=== PATIENT | female | born 1995 | race American Indian/Alaskan Native ===

== ENCOUNTER 2018-01-01 20:04 | Emergency (ER) | payer OTHER ==
[2018-01-01 20:45] VITALS: BP 136/82
--- NOTE | 2018-01-01 22:54 | Emergency Department Report ---
- General Chief complaint: Skin/Abscess/Foreign Body Stated complaint: ABSCESS ON VAGINA Time Seen by Provider: 01/01/18 22:49 Source: patient Mode of arrival: Ambulatory Limitations: No Limitations - History of Present Illness Initial comments: 22-year-old -[place] female presents to the ER complaining of boil on her vaginal area. Patient reports it is been there for about a week but has progressively gotten worse. Patient reports that she just put a warm hot cloth on that area today. Patient denies any fever or chills no nausea no vomiting. She does report a past medical history of hypertension. MD complaint: abscess/boil Location: buttocks - Related Data Previous Rx's Medication Instructions Recorded Last Taken Type Cephalexin [Keflex] 500 mg PO Q12HR 10 Days #20 capsule 01/01/18 Unknown Rx Ibuprofen [Motrin 800 MG tab] 800 mg PO Q8HR PRN #15 tablet 01/01/18 Unknown Rx Allergies Allergy/AdvReac Type Severity Reaction Status Date / Time No Known Allergies Allergy Verified 01/01/18 20:[address] [facility] Chief Complaint: Skin/Abscess/Foreign Body Stated Complaint: ABSCESS ON VAGINA Time Seen by Provider: 01/01/18 22:49 Home Medications: Previous Rx's Medication Instructions Recorded Last Taken Type Cephalexin [Keflex] 500 mg PO Q12HR 10 Days #20 capsule 01/01/18 Unknown Rx Ibuprofen [Motrin 800 MG tab] 800 mg PO Q8HR PRN #15 tablet 01/01/18 Unknown Rx Allergies/Adverse Reactions: Allergies Allergy/AdvReac Type Severity Reaction Status Date / Time No Known Allergies Allergy Verified 01/01/18 20:41 ED Review of Systems ROS: Stated complaint: ABSCESS ON VAGINA Other details as noted in HPI ED Past Medical Hx - Past Medical History Previous Medical History?: Yes Hx Hypertension: Yes - Surgical History Past Surgical History?: No - Social History Smoking Status: Current Every Day Smoker Substance Use Type: Alcohol - Medications Home Medications: Home Medications Medication Instructions Recorded Confirmed Last Taken Type Cephalexin [Keflex] 500 mg PO Q12HR 10 Days #20 capsule 01/01/18 Unknown Rx Ibuprofen [Motrin 800 MG tab] 800 mg PO Q8HR PRN #15 tablet 01/01/18 Unknown Rx ED Physical Exam - General Limitations: No Limitations General appearance: alert, in no apparent distress - Head Head exam: Present: atraumatic, normocephalic - Eye Eye exam: Present: EOMI - ENT ENT exam: Present: mucous membranes moist - External exam: Present: erythema (enter labia just below the introitus), swelling (enter labia just below the introitus) - Extremities Exam Extremities exam: Present: full ROM - Neurological Exam Neurological exam: Present: alert, oriented X3 - Psychiatric Psychiatric exam: Present: normal affect, normal mood ED Course Vital Signs 01/01/18 20:41 Temperature 98.6 F Pulse Rate 57 L Respiratory 16 Rate Blood Pressure 136/82 O2 Sat by Pulse 96 Oximetry ED Medical Decision Making - Medical Decision Making Patient has been evaluated by this provider fast track. Patient is being given ibuprofen and Keflex for pain management and the start of antibiotics. Patient prefers not to have a incision and drainage as she would like to take antibiotics and continue with warm compresses to see if that will help before she has an incision and drain. Discussed patient I will discharge her on ibuprofen 800 mg for pain and swelling as well as Keflex 500 mg by mouth twice a day for 10 days dispensed 20. Discussed patient to continue with warm compresses to the area. Return back to the emergency room if the ball gets worse or does not improve in a few days. Patient verbalized understanding Critical care attestation.: If time is entered above; I have spent that time in minutes in the direct care of this critically ill patient, excluding procedure time. ED Disposition Clinical Impression: Boil of vulva Disposition: DC-01 TO HOME OR SELFCARE Is pt being admited?: No Does the pt Need Aspirin: No Condition: Stable Instructions: Furunculosis and Carbunculosis (ED), Abscess (ED) Additional Instructions: Complete antibiotics as prescribed. Continue warm to hot compresses to the boil /abscess. If symptoms persist or gets worse please return back to the emergency room or follow-up with her primary care provider. Prescriptions: Cephalexin [Keflex] 500 mg PO Q12HR 10 Days #20 capsule Ibuprofen [Motrin 800 MG tab] 800 mg PO Q8HR PRN #15 tablet PRN Reason: Pain , Severe (7-10) Referrals: PRIMARY CARE, [Primary Care Provider] - 3-5 Days [facility] [Provider Group] - 3-5 Days Forms: Work/School Release Form(ED)
[2018-01-01] MEDS ORDERED: MOTRIN PO ONE (22:55)
[2018-01-01] MEDS ORDERED: KEFLEX PO ONE (22:59)
== END 2018-01-01 23:40 | disposition home or self-care (01) ==
LOC: ED 20:04
DX: N76.4 Abscess of vulva (principal); I10 Essential (primary) hypertension; F17.200 Nicotine dependence, unspecified, uncomplicated
CPT/HCPCS: 99282

== ENCOUNTER 2018-12-23 11:09 | Emergency (ER) | payer OTHER ==
--- NOTE | 2018-12-23 11:20 | Emergency Department Report ---
Blank Doc - Documentation Documentation: 23 y o female presents with left sided hand tingling sensation to her fingers t hat later led to her having leftt sided non radiating chest pain felt like gas- like PMH: HTN not on medication labs/ cxr ACC
[2018-12-23 11:44] LABS: Basophils # (Auto) 0.1 K/mm3 (0.0-0.1); Basophils % (Auto) 0.7 % (0.0-1.8); Eosinophils # (Auto) 0.1 K/mm3 (0.0-0.4); Eosinophils % (Auto) 1.9 % (0.0-4.3); Hematocrit 38.1 % (30.3-42.9); Hemoglobin 12.6 gm/dl (10.1-14.3); Lymphocytes # (Auto) 2.2 K/mm3 (1.2-5.4); Lymphocytes % (Auto) 28.3 % (13.4-35.0); Mean Corpuscular HGB Conc 33 % (30-34); Mean Corpuscular Volume 87 fl (79-97); Monocytes # (Auto) 0.7 K/mm3 (0.0-0.8); Monocytes % (Auto) 9.3 % (0.0-7.3); Platelet Count 275 K/mm3 (140-440); Red Blood Count 4.35 M/mm3 (3.65-5.03); Red Cell Distribution Width 13.7 % (13.2-15.2)
[2018-12-23 12:05] LABS: BUN/Creatinine Ratio 14; Blood Urea Nitrogen 11 mg/dL (7-17); Calcium 8.8 mg/dL (8.4-10.2); Hemolysis Index 5
--- NOTE | 2018-12-23 12:36 | XRay Report ---
ROUTINE CHEST, TWO VIEWS: HISTORY: chest pain. The trachea, heart, mediastinal contour, lung martin and bony thorax are unremarkable. IMPRESSION: Unremarkable chest x-ray.
--- NOTE | 2018-12-23 13:35 | Emergency Department Report ---
ED Chest Pain HPI - General Chief Complaint: Chest Pain Stated Complaint: CHEST PAIN Time Seen by Provider: 12/23/18 11:17 Source: patient Mode of arrival: Ambulatory Limitations: No Limitations - History of Present Illness Initial Comments: 23 yo F reports left upper chest pain, reports associated left hand tingling. Denies shortness of breath, fever, nausea, vomiting, diaphoresis, leg pain or swelling. MD Complaint: chest pain -: days(s) (1) Onset: during rest Pain Location: left chest Pain Radiation: none Severity: mild Quality: sharp Consistency: intermittent Improves With: nothing Worsens With: palpation, movement re: denies: nausea, vomting, diaphoresis, dyspnea Other Symptoms: denies: cough, leg swelling - Related Data Previous Rx's Medication Instructions Recorded Last Taken Type Ibuprofen [Motrin 800 MG tab] 800 mg PO Q8HR PRN #15 tablet 01/01/18 Unknown Rx cephALEXin [Keflex] 500 mg PO Q12HR 10 Days #20 capsule 01/01/18 Unknown Rx Naproxen [Naprosyn] 500 mg PO BID #20 tablet 12/23/18 Unknown Rx hydroCHLOROthiazide [HCTZ] 25 mg PO QDAY #30 tablet 12/23/18 Unknown Rx Allergies Allergy/AdvReac Type Severity Reaction Status Date / Time No Known Allergies Allergy Verified 01/01/18 20:41 Heart Score - HEART Score History: Slightly suspicious EKG: Normal Age: < 45 Risk factors: No known risk factors Troponin: < normal limit HEART Score: 0 ED Review of Systems ROS: Stated complaint: CHEST PAIN Other details as noted in HPI Comment: All other systems reviewed and negative Constitutional: denies: chills, fever Respiratory: denies: cough, shortness of breath Cardiovascular: chest pain Gastrointestinal: denies: nausea, vomiting Musculoskeletal: other (denies leg pain or swelling) ED Past Medical Hx - Past Medical History Previous Medical History?: Yes Hx Hypertension: Yes Hx Asthma: Yes - Surgical History Past Surgical History?: No - Social History Smoking Status: Current Every Day Smoker Substance Use Type: Alcohol, Marijuana - Medications Home Medications: Home Medications Medication Instructions Recorded Confirmed Last Taken Type Ibuprofen [Motrin 800 MG tab] 800 mg PO Q8HR PRN #15 tablet 01/01/18 Unknown Rx cephALEXin [Keflex] 500 mg PO Q12HR 10 Days #20 capsule 01/01/18 Unknown Rx Naproxen [Naprosyn] 500 mg PO BID #20 tablet 12/23/18 Unknown Rx hydroCHLOROthiazide [HCTZ] 25 mg PO QDAY #30 tablet 12/23/18 Unknown Rx ED Physical Exam - General Limitations: No Limitations General appearance: alert, in no apparent distress - Head Head exam: Present: atraumatic, normocephalic - Eye Eye exam: Present: normal appearance, PERRL, EOMI - ENT ENT exam: Present: mucous membranes moist - Neck Neck exam: Present: normal inspection - Respiratory Respiratory exam: Present: normal lung sounds bilaterally, chest wall tenderness. Absent: respiratory distress - Cardiovascular Cardiovascular Exam: Present: regular rate, normal rhythm - GI/Abdominal GI/Abdominal exam: Present: soft. Absent: distended, tenderness - Extremities Exam Extremities exam: Present: normal inspection. Absent: pedal edema, calf tenderness - Neurological Exam Neurological exam: Present: alert, oriented X3 - Psychiatric Psychiatric exam: Present: normal affect, normal mood - Skin Skin exam: Present: warm, dry, intact, normal color ED Course Vital Signs 12/23/18 12/23/18 11:17 13:44 Temperature 98.2 F Pulse Rate 62 60 Respiratory 20 16 Rate Blood Pressure 158/101 Blood Pressure 150/100 [Left] O2 Sat by Pulse 99 99 Oximetry ED Medical Decision Making - Lab Data Result diagrams: 12/23/18 11:32 12/23/18 11:32 - EKG Data -: EKG Interpreted by Ar EKG shows normal: sinus rhythm, axis, intervals, QRS complexes, ST-T waves Rate: normal - EKG Data Interpretation: no acute changes - Radiology Data Radiology results: report reviewed, image reviewed - Differential Diagnosis chest wall pain, ACS, pneumonia Critical care attestation.: If time is entered above; I have spent that time in minutes in the direct care of this critically ill patient, excluding procedure time. ED Disposition Clinical Impression: Hypertension, Acute chest wall pain Disposition: - TO HOME OR SELFCARE Is pt being admited?: No Condition: Stable Instructions: Costochondritis (ED), Hypertension (ED) Prescriptions: hydroCHLOROthiazide [HCTZ] 25 mg PO QDAY #30 tablet Naproxen [Naprosyn] 500 mg PO BID #20 tablet Referrals: BEN RAMOS MD [Primary Care Provider] - 3-5 Days Time of Disposition: 13:32
[2018-12-23 13:47] VITALS: BP 150/100
== END 2018-12-23 13:44 | disposition home or self-care (01) ==
LOC: ED 11:09
DX: R07.89 Other chest pain (principal); I10 Essential (primary) hypertension; J45.909 Unspecified asthma, uncomplicated; F17.200 Nicotine dependence, unspecified, uncomplicated; F12.10 Cannabis abuse, uncomplicated
CPT/HCPCS: 36415; 71046; 80048; 84484; 84703; 85025; 93005; 93010

== ENCOUNTER 2021-03-13 09:54 | Inpatient (IN) | payer MEDICAID, OTHER ==
[2021-03-13 11:12] LABS: Hemoglobin 11.2 gm/dl (10.1-14.3); Mean Corpuscular HGB Conc 33 % (30-34); Mean Corpuscular Volume 88 fl (79-97); Platelet Count 173 K/mm3 (140-440); Red Blood Count 3.88 M/mm3 (3.65-5.03); Red Cell Distribution Width 13.8 % (13.2-15.2)
[2021-03-13 11:39] LABS: Alanine Aminotransferase 19 units/L (7-56); Uric Acid 5.1 mg/dL (3.5-7.6)
[2021-03-13] MEDS ORDERED: ACETAMINOPHEN 325 MG TAB PO PRN (12:42)
[2021-03-13] MEDS ORDERED: DOCUSATE SODIUM 100 MG CAP PO PRN (12:42)
--- NOTE | 2021-03-13 12:51 | History and Physical Report ---
History of Present Illness Date of examination: 03/13/21 Date of admission: 03/13/2021 Chief complaint: Elevated blood pressures in office and triage, pt c/o mild BURT starting AM 03/13, no tylenol, admission for 24 hr urine History of present illness: EDC Confirmation: 04/09/2021 Past History : 1 Past Medical History: Denies (02/19/2021) (HTN - discovered in records from 2019) Past Surgical History: Reviewed and updated today: negative Risk Factors: Smoked Tobacco Use: Never smoker Smokeless Tobacco Use: Never Passive Smoke Exposure: no Caffeine Use: <1 drinks per day Exercise: yes Times/wk: 4 Type of Exercise: walk Seatbelt Use: 100 % No Dietary Counseling Reason: pn yes PAP Smear History: Date of Last PAP Smear: 08/22/2020 Results: normal Alcohol Use: no Drug Use: no Past Medical History Anesthesia Complications: negative Anemia: negative Autoimmune Disorder: negative Bleeding Disorder: negative Blood Transfusions: negative Breast Disease: negative Diabetes: negative Heart Disease: negative Hypertension: negative Hepatitis/Liver Disease: negative Kidney Disease/UTI: negative Neurologic/Epilepsy/Migraines: negative Phlebitis/Varicosities: negative Psychiatric: negative Pulmonary Disease/Asthma: negative Thyroid Disease: negative Hospitalizations: negative 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 of genital herpes: yes Infection History Comments: HSV per chart review Genetic History Congenital Heart Defect: Mom: no Shea Disease: Mom: no Thalassemia Mom: no Neural Tube Defect Mom: no Down's Syndrome Mom: no Gallo-Sachs Mom: no Sickle Cell Disease/Trait Mom: no Hemophilia Mom: no Muscular Dystrophy Mom: no Cystic Fibrosis Mom: no [place] Chorea Mom: no Mental Retardation Mom: no Fragile X Mom: no Other Genetic/Chromosomal Disorder Mom: no Child w/other defect Mom: no Enviromental Exposures Xray Exposure: no Medication, drug, or alcohol use since LMP: no Chemical/Other Exposure: no Exposure to Cat Liter: no Hx of Parvovirus (Fifth Disease): no Active Medications (reviewed today): None Current Allergies (reviewed today): No known allergies Past History Past Medical History: other (See HPI) Past Surgical History: other (See HPI) TITLE I ASSISTANT History: other (See HPI) Family/Genetic History: other (See HPI) Social history: other (See HPI) - Obstetrical History Expected Date of Delivery: 04/09/21 Actual Gestation: 36 Week(s) 1 Day(s) : 1 Para: 0 Hx # Term Pregnancies: 0 Number of Pregnancies: 0 Spontaneous Abortions: 0 Induced : 0 Number of Living Children: 0 Medications and Allergies Allergies Allergy/AdvReac Type Severity Reaction Status Date / Time No Known Allergies Allergy Verified 01/01/18 20:41 Home Medications Medication Instructions Recorded Confirmed Last Taken Type Ibuprofen [Motrin 800 MG tab] 800 mg PO Q8HR PRN #15 tablet 01/01/18 Unknown Rx cephALEXin [Keflex] 500 mg PO Q12HR 10 Days #20 capsule 01/01/18 Unknown Rx Naproxen [Naprosyn] 500 mg PO BID #20 tablet 12/23/18 Unknown Rx hydroCHLOROthiazide [HCTZ] 25 mg PO QDAY #30 tablet 12/23/18 Unknown Rx Active Meds: Active Medications Acetaminophen (Acetaminophen 325 Mg Tab) 650 mg PO Q4H PRN PRN Reason: Pain MILD(1-3)/Fever >100.5/BURT Docusate Sodium (Docusate Sodium 100 Mg Cap) 100 mg PO Q12H PRN PRN Reason: Constipation Multivitamins/Iron/Calcium ( [id number] Fumarate-Folic Acid Vit Tab) 1 each PO QDAY RENAE Ondansetron HCl (Ondansetron 4 Mg/2 Ml Inj) 4 mg IV Q6H PRN PRN Reason: Nausea And Vomiting Review of Systems All systems: negative - Vital Signs Vital signs: Vital Signs Pulse BP 63 132/84 03/13/21 10:44 03/13/21 10:44 Temp Pulse Resp BP Pulse Ox 98.8 F 63 18 128/84 03/13/21 11:00 03/13/21 12:44 03/13/21 11:00 03/13/21 12:44 - Physical Exam Cardiovascular: Regular rate Lungs: Positive: Normal air movement Abdomen: Positive: normal appearance, soft Genitourinary (Female): Positive: normal external genitalia Vulva: both: normal Vagina: Positive: normal moisture - Obstetrical FHR: category 1 Uterine Contraction Monitor Mode: External Uterine Contraction Pattern: Irregular Uterine Tone Measurement Phase: Resting Results Result Diagrams: 03/13/21 11:09 03/13/21 10:07 Abnormal lab results 03/13/21 Range/Units 10:07 Creatinine 0.5 L (0.6-1.2) mg/dL All other labs normal. Assessment and Plan 25 y/o @ 36+1, seen in the office today with b/p 130/90. She c/o BURT since last night but had not felt the need totry tylenol to relieve. Pt sent to triage for monitoring where she continued to have elevated blood pressures. Pre- e labs NL at this time, UA pending. Pt initially denied hx of htn but upon review of records, she previously was dx with htn in 2019 and rx HCTZ. Plan to admit for 24h urine collection and management of htn if necessary. Dr. Singh consulted and aware of patient's status. - Patient Problems (1) HTN (hypertension), benign Current Visit: Yes Status: Acute Plan to address problem: baseline pre-e labs close monitoring b/p's and urine output 24hr urine collection (2) 36 weeks gestation of Current Visit: Yes Status: Acute (3) Headache Current Visit: Yes Status: Acute Qualifiers: Headache type: tension-type Headache chronicity pattern: acute headache Plan to address problem: tylenol PRN monitor for other pre-e s/s
[2021-03-13 13:10] LABS: Bacteria,Urine 1+ /HPF (Negative); Bilirubin,Urine NEG (Negative); Blood,Urine NEG (Negative); Color,Urine Yellow (Yellow); Mucus,Urine 2+ /HPF; Protein,Urine <15 mg/dL mg/dL (Negative); Urobilinogen,Urine < 2.0 mg/dL (<2.0)
[2021-03-13] MEDS: ONDANSETRON 4 MG/2 ML INJ IV PRN (16:36)
--- NOTE | 2021-03-13 17:17 | Event Note ---
Date: 03/13/21 Pt laying in bed, no complaints at this time, states BURT has resolved. Cat 1 strip, VSSAF and labs wnl. Will reassess prn.
--- NOTE | 2021-03-14 07:41 | Progress Note ---
Assessment and Plan Pt laying in bed. Denies BURT, vision changes, and RUQ pain at this time. Pt with c/o contractions since 0500 this am. Pt reports she felt contractions <5mins apart overnight but they spontaneously resolved; Now feeling frequent contractions since 0500. POC with risks and benefits d/w pt. Pt verbalizes understanding and agrees to vaginal exam to r/o PTL. SVE closed/thick/high. Precautions given. RN notified to monitor pt for labor and notify provider with any changes in status. - Patient Problems (1) 36 weeks gestation of Current Visit: Yes Status: Acute Plan to address problem: NST q4h, to be placed on continuous monitoring PRN for signs of labor or nonreassuring FHT's (2) HTN (hypertension), benign Current Visit: Yes Status: Acute Plan to address problem: Continue 24hr urine collection, as ordered Strict I&O VS per protocol Monitor pt closely & Notify provider with any changes in status Subjective - Subjective Date of service: 03/14/21 Principal diagnosis: IUP @ 36.2 weeks gestation, CHTN Patient reports: movement normal, contractions, no loss of fluid, no vaginal bleeding Objective - Vital Signs Vital Signs: Vital Signs - 12hr 03/13/21 03/13/21 03/13/21 19:45 19:50 19:55 Pulse Rate 60 68 74 Blood Pressure O2 Sat by Pulse 100 99 99 Oximetry 03/13/21 03/13/21 03/13/21 20:00 20:02 20:05 Pulse Rate 61 64 57 L Blood Pressure 130/75 O2 Sat by Pulse 100 99 Oximetry 03/13/21 03/13/21 03/13/21 20:10 20:15 20:20 Pulse Rate 61 68 61 Blood Pressure O2 Sat by Pulse 100 100 100 Oximetry 03/13/21 03/13/21 03/13/21 20:25 20:30 20:32 Pulse Rate 66 70 57 L Blood Pressure 137/83 O2 Sat by Pulse 99 99 Oximetry 03/13/21 03/13/21 03/13/21 20:35 20:40 20:45 Pulse Rate 65 70 57 L Blood Pressure O2 Sat by Pulse 99 97 98 Oximetry 03/13/21 03/13/21 03/13/21 20:50 20:55 21:00 Pulse Rate 63 61 56 L Blood Pressure O2 Sat by Pulse 98 99 98 Oximetry 03/13/21 03/13/21 03/13/21 21:02 21:05 21:10 Pulse Rate 59 L 50 L 77 Blood Pressure 136/78 O2 Sat by Pulse 99 100 Oximetry 03/13/21 03/13/21 03/13/21 21:15 21:20 21:25 Pulse Rate 69 65 67 Blood Pressure O2 Sat by Pulse 99 98 98 Oximetry 03/13/21 03/13/21 03/13/21 21:30 21:32 21:35 Pulse Rate 67 64 58 L Blood Pressure 116/55 O2 Sat by Pulse 100 100 Oximetry 03/13/21 03/13/21 03/13/21 21:40 21:45 21:50 Pulse Rate 72 72 66 Blood Pressure O2 Sat by Pulse 100 98 97 Oximetry 03/13/21 03/13/21 03/13/21 21:55 22:00 22:05 Pulse Rate 61 59 L 56 L Blood Pressure O2 Sat by Pulse 98 98 100 Oximetry 03/13/21 03/13/21 03/13/21 22:10 22:15 22:20 Pulse Rate 61 68 65 Blood Pressure O2 Sat by Pulse 97 99 100 Oximetry 03/13/21 03/13/21 03/13/21 22:25 22:30 22:32 Pulse Rate 66 62 57 L Blood Pressure 113/56 O2 Sat by Pulse 100 100 Oximetry 03/13/21 03/13/21 03/13/21 22:35 22:40 22:45 Pulse Rate 66 65 62 Blood Pressure O2 Sat by Pulse 97 98 98 Oximetry 03/13/21 03/13/21 03/13/21 22:50 22:55 23:00 Pulse Rate 75 58 L 57 L Blood Pressure O2 Sat by Pulse 99 100 99 Oximetry 03/13/21 03/13/21 03/13/21 23:02 23:05 23:10 Pulse Rate 47 L 60 60 Blood Pressure 107/66 O2 Sat by Pulse 97 98 Oximetry 03/13/21 03/13/21 03/13/21 23:15 23:20 23:25 Pulse Rate 74 69 62 Blood Pressure O2 Sat by Pulse 100 99 99 Oximetry 03/13/21 03/13/21 03/13/21 23:30 23:31 23:35 Pulse Rate 72 60 62 Blood Pressure 116/69 O2 Sat by Pulse 99 99 Oximetry 03/13/21 03/13/21 03/13/21 23:40 23:45 23:50 Pulse Rate 58 L 65 54 L Blood Pressure O2 Sat by Pulse 100 97 97 Oximetry 03/13/21 03/14/21 03/14/21 23:55 00:00 00:02 Pulse Rate 52 L 54 L 56 L Blood Pressure 113/72 O2 Sat by Pulse 100 100 Oximetry 03/14/21 03/14/21 03/14/21 00:03 00:05 00:10 Pulse Rate 66 55 L 64 Blood Pressure O2 Sat by Pulse 89 98 99 Oximetry 03/14/21 03/14/21 03/14/21 00:15 00:20 00:25 Pulse Rate 64 59 L 66 Blood Pressure O2 Sat by Pulse 98 97 99 Oximetry 03/14/21 03/14/21 03/14/21 00:30 00:32 00:35 Pulse Rate 59 L 60 65 Blood Pressure 141/83 O2 Sat by Pulse 100 100 Oximetry 03/14/21 03/14/21 03/14/21 00:40 00:45 00:50 Pulse Rate 65 65 77 Blood Pressure O2 Sat by Pulse 100 100 100 Oximetry 03/14/21 03/14/21 03/14/21 00:55 01:00 01:01 Pulse Rate 66 59 L 61 Blood Pressure 123/79 O2 Sat by Pulse 98 97 Oximetry 03/14/21 03/14/21 03/14/21 01:05 01:10 01:15 Pulse Rate 60 64 69 Blood Pressure O2 Sat by Pulse 97 98 97 Oximetry 03/14/21 03/14/21 03/14/21 01:20 01:25 01:30 Pulse Rate 56 L 61 68 Blood Pressure O2 Sat by Pulse 99 98 99 Oximetry 03/14/21 03/14/21 03/14/21 01:33 01:35 01:40 Pulse Rate 62 83 63 Blood Pressure 127/79 O2 Sat by Pulse 97 97 Oximetry 03/14/21 03/14/21 03/14/21 01:45 01:50 01:55 Pulse Rate 77 74 78 Blood Pressure O2 Sat by Pulse 97 97 96 Oximetry 03/14/21 03/14/21 03/14/21 02:00 02:01 02:05 Pulse Rate 67 82 75 Blood Pressure 130/62 O2 Sat by Pulse 93 97 Oximetry 03/14/21 03/14/21 03/14/21 02:10 02:15 02:16 Pulse Rate 68 76 72 Blood Pressure O2 Sat by Pulse 97 96 94 Oximetry 03/14/21 03/14/21 03/14/21 02:20 02:25 02:30 Pulse Rate 71 69 62 Blood Pressure O2 Sat by Pulse 96 97 99 Oximetry 03/14/21 03/14/21 03/14/21 02:32 02:35 02:40 Pulse Rate 55 L 65 64 Blood Pressure 116/56 O2 Sat by Pulse 97 97 Oximetry 03/14/21 03/14/21 03/14/21 02:45 02:50 02:55 Pulse Rate 74 60 69 Blood Pressure O2 Sat by Pulse 97 97 98 Oximetry 03/14/21 03/14/21 03/14/21 03:00 03:01 03:05 Pulse Rate 63 71 70 Blood Pressure 129/72 O2 Sat by Pulse 98 95 Oximetry 03/14/21 03/14/21 03/14/21 03:10 03:12 03:15 Pulse Rate 73 73 55 L Blood Pressure O2 Sat by Pulse 96 94 99 Oximetry 03/14/21 03/14/21 03/14/21 03:20 03:25 03:30 Pulse Rate 62 68 69 Blood Pressure O2 Sat by Pulse 97 96 97 Oximetry 03/14/21 03/14/21 03/14/21 03:31 03:35 03:40 Pulse Rate 62 68 65 Blood Pressure 133/75 O2 Sat by Pulse 98 98 Oximetry 03/14/21 03/14/21 03/14/21 03:45 03:50 03:55 Pulse Rate 64 74 57 L Blood Pressure O2 Sat by Pulse 98 100 97 Oximetry 03/14/21 03/14/21 03/14/21 04:00 04:02 04:05 Pulse Rate 59 L 61 58 L Blood Pressure 124/77 O2 Sat by Pulse 97 97 Oximetry 03/14/21 03/14/21 03/14/21 04:10 04:15 04:20 Pulse Rate 59 L 61 61 Blood Pressure O2 Sat by Pulse 97 97 96 Oximetry 03/14/21 03/14/21 03/14/21 04:25 04:30 04:31 Pulse Rate 61 61 63 Blood Pressure 122/67 O2 Sat by Pulse 96 96 Oximetry 03/14/21 03/14/21 03/14/21 04:35 04:40 04:45 Pulse Rate 70 61 55 L Blood Pressure O2 Sat by Pulse 96 97 98 Oximetry 03/14/21 03/14/21 03/14/21 04:50 04:55 05:00 Pulse Rate 59 L 59 L 66 Blood Pressure O2 Sat by Pulse 98 99 97 Oximetry 03/14/21 03/14/21 03/14/21 05:01 05:05 05:10 Pulse Rate 68 63 61 Blood Pressure 123/70 O2 Sat by Pulse 97 97 Oximetry 03/14/21 03/14/21 03/14/21 05:15 05:20 05:25 Pulse Rate 61 64 63 Blood Pressure O2 Sat by Pulse 97 97 97 Oximetry 03/14/21 03/14/21 03/14/21 05:30 05:32 05:35 Pulse Rate 61 57 L 60 Blood Pressure 116/68 O2 Sat by Pulse 98 96 Oximetry 03/14/21 03/14/21 03/14/21 05:40 05:45 05:49 Pulse Rate 63 61 72 Blood Pressure O2 Sat by Pulse 96 97 94 Oximetry 03/14/21 03/14/21 03/14/21 05:50 05:55 06:00 Pulse Rate 54 L 59 L 62 Blood Pressure O2 Sat by Pulse 99 98 100 Oximetry 03/14/21 03/14/21 03/14/21 06:02 06:05 06:10 Pulse Rate 60 55 L 63 Blood Pressure 117/68 O2 Sat by Pulse 100 99 Oximetry 03/14/21 03/14/21 03/14/21 06:15 06:20 06:25 Pulse Rate 69 60 78 Blood Pressure O2 Sat by Pulse 99 99 99 Oximetry 03/14/21 03/14/21 03/14/21 06:30 06:31 06:35 Pulse Rate 76 76 74 Blood Pressure 116/57 O2 Sat by Pulse 98 99 Oximetry 03/14/21 03/14/21 03/14/21 06:40 06:45 06:50 Pulse Rate 81 74 74 Blood Pressure O2 Sat by Pulse 98 95 98 Oximetry 03/14/21 03/14/21 03/14/21 06:55 07:00 07:02 Pulse Rate 80 92 H 79 Blood Pressure 102/55 O2 Sat by Pulse 97 99 Oximetry 03/14/21 03/14/21 03/14/21 07:05 07:10 07:15 Pulse Rate 78 77 82 Blood Pressure O2 Sat by Pulse 99 99 99 Oximetry 03/14/21 03/14/21 03/14/21 07:20 07:25 07:30 Pulse Rate 81 71 80 Blood Pressure O2 Sat by Pulse 99 99 98 Oximetry 03/14/21 03/14/21 07:32 07:35 Pulse Rate 69 63 Blood Pressure 99/50 O2 Sat by Pulse 98 Oximetry - Exam Breasts: deferred Cardiovascular: Regular rate Lungs: Normal air movement Abdomen: Present: normal appearance, soft. Absent: distention, tenderness, guarding Vulva: both: normal Uterus: Present: normal FHR: auscultation normal, category 1 FHR comments: monitors placed for assessment of contractions Uterine Contraction Monitor Mode: Palpation Cervical Dilatation: 0 Cervical Effacement Percentage: 0 station: -5 Uterine Contraction Pattern: Irregular Uterine Tone Measurement Phase: Contraction Uterine Contraction Intensity: Mild Extremities: normal - Labs Labs: Abnormal Labs 03/13/21 10:07 Creatinine 0.5 L Laboratory Results - last 24 hr 03/13/21 03/13/21 03/13/21 10:07 11:09 12:52 WBC 8.0 RBC 3.88 Hgb 11.2 Hct 34.0 MCV 88 MCH 29 MCHC 33 RDW 13.8 Plt Count 173 Creatinine 0.5 L Estimated GFR > 60 Uric Acid 5.1 AST 19 ALT 19 Lactate Dehydrogenase 159 Urine Color Yellow Urine Turbidity Slightly-cloudy Urine pH 7.0 Ur Specific [place] 1.016 Urine Protein <15 mg/dl Urine Glucose (UA) Neg Urine Ketones Neg Urine Blood Neg Urine Nitrite Neg Urine Bilirubin Neg Urine Urobilinogen < 2.0 Ur Leukocyte Esterase Tr Urine WBC (Auto) 4.0 Urine RBC (Auto) 1.0 U Epithel Cells (Auto) 10.0 Urine Bacteria (Auto) 1+ Urine Mucus 2+ Blood Type Antibody Screen 03/13/21 13:15 WBC RBC Hgb Hct MCV MCH MCHC RDW Plt Count Creatinine Estimated GFR Uric Acid AST ALT Lactate Dehydrogenase Urine Color Urine Turbidity Urine pH Ur Specific [place] Urine Protein Urine Glucose (UA) Urine Ketones Urine Blood Urine Nitrite Urine Bilirubin Urine Urobilinogen Ur Leukocyte Esterase Urine WBC (Auto) Urine RBC (Auto) U Epithel Cells (Auto) Urine Bacteria (Auto) Urine Mucus Blood Type O POSITIVE Antibody Screen Negative
[2021-03-14] MEDS ORDERED: PRENATAL VIT27-FE FUMARATE-FOLIC ACID VIT TAB PO SCH (10:00)
--- NOTE | 2021-03-14 19:58 | Event Note ---
Date: 03/14/21 Chart and labs reviewed Nonproteinuric elevated BP's. She has the diagnosis of CHTN in her previous OBGYN's records. She no longer has a BURT and BP's have been stable until tonight, still not severe but in mild range. Will observe overnight. Orders given to RN and placed in EMR.
--- NOTE | 2021-03-15 06:18 | Discharge Summary ---
Providers - Providers Date of Admission: 03/13/21 09:55 Date of discharge: 03/15/21 (pt req d/c home today) Attending physician: HUONG HERRMANN MD Primary care physician: HUONG HERRMANN MD Hospitalization Reason for admission: elevated BP; 24hr urine collection Condition: Good Hospital course: pt's BP stablized; TP 216; Pt w/o BURT, blurred vision, chest pain Disposition: 01 HOME / SELF CARE / HOMELESS Final Discharge Diagnosis (Prints w/discharge instructions): Benign HTN in 3rd trimester Time spent for discharge: 15min - Discharge Diagnoses (1) HTN (hypertension), benign Status: Acute Comment: RTO Friday03-19-21 @ 1030 for OB appt and BP check Core Measure Documentation - Palliative Care Palliative Care/ Comfort Measures: Not Applicable - Core Measures Any of the following diagnoses?: none - VTE Discharge Requirements Deep Vein Thrombosis/Pulmonary Embolism Present on Admission: No Has pt received <5 days of overlap therapy or INR<2.0: No Anticoagulant overlap therapy prescribed at discharge: No Contraindication No Overlap Therapy order at DC: Not Indicated - Acute NH Discharge Requirements Aspirin at discharge: No Reason for no aspirin on DC: Medical contraindication HERBIE/ARB for LVSD if EF <40%: Not Applicable Reason for no HERBIE/ARB: Medical contraindication Beta ady at discharge: No Reason for no beta ady on DC: Medical contraindication Statin for LDL = or >100 mg/dl on DC: Not Applicable Reason for no statin on DC: Medical contraindication - Heart Failure Discharge Requirements HERBIE/ARB for LVSD if EF <40%: Not Applicable Reason for no HERBIE/ARB: Medical contraindication Beta ady at discharge: No Reason for no beta ady on DC: Medical contraindication - Stroke Discharge Requirements Statin for LDL = or >70 mg/dl on DC: Not Applicable Reason for no statin on DC: Not Indicated Anticoag for atrial fib/atrial flutter: Not Applicable Reason for no anticoag for AF/F on DC: Not Indicated Antithrombotic for ischemic stroke: No Reason for no antithrombotic on DC: Not Indicated Exam - Physical Exam Narrative exam: Pt sleeping easily aroused. Desires d/c today Denies BURT, blurred vision, chest pain. NST reactive. BP 130-115/80-60 P: d/c today with instructions RTO Friday03-19-21 @ 1030 for f/u. Stressed to pt to call with any ocncerns and to monitor FM QD All concerns addressed Will consult with Dr Spear - Constitutional Vitals: Temp Pulse Resp BP Pulse Ox 98.7 F 57 L 18 128/62 97 03/14/21 20:11 03/15/21 06:11 03/14/21 16:10 03/15/21 05:47 03/15/21 06:11 General appearance: Present: no acute distress, well-nourished - EENT Eyes: Present: PERRL ENT: hearing intact, clear oral mucosa - Neck Neck: Present: supple, normal ROM - Respiratory Respiratory effort: normal Respiratory: bilateral: CTA - Cardiovascular Heart Sounds: Present: S1 & S2. Absent: rub, click - Extremities Extremities: pulses symmetrical, No edema Peripheral Pulses: within normal limits - Abdominal General gastrointestinal: Present: deferred - Integumentary Integumentary: Present: clear, warm, dry - Musculoskeletal Musculoskeletal: gait normal, strength equal bilaterally - Psychiatric Psychiatric: appropriate mood/affect, intact judgment & insight - Neurologic Neurologic: CNII-XII intact, moves all extremities Plan Activity: advance as tolerated Weight Bearing Status: Full Weight Bearing Diet: low salt Care Plan Goals: no onset of BP's in severe range Follow up with: HUONG HERRMANN MD [Primary Care Provider] - 03/19/21 10:30 am (Please call [phone] with any headache, not relieved with Tylenol, blurred vision, chest pain. Monitor your baby's movement everyday. REST. Limit salt, fried foods, drink a gallon of water a day. Call with any concerns. Keep appontment 03-19-21 at 10:30 in the [place] office)
[2021-03-15] MEDS ORDERED: TERBUTALINE 1 MG/1 ML INJ SUB-Q PRN (12:41)
[2021-03-15] MEDS ORDERED: OXYTOCIN 10 UNIT/1 ML INJ IM PRN (12:41)
[2021-03-15] MEDS ORDERED: CARBOPROST TROMETHAMINE 250 MCG/1 ML INJ IM PRN (12:41)
[2021-03-15] MEDS ORDERED: ePHEDrine SULFATE 50 MG/1 ML INJ IV PRN (12:41)
[2021-03-15] MEDS ORDERED: LIDOCAINE (2%) 20 MG/1 ML VIAL 20 ML MDV INFILTRATI ONE (12:41)
[2021-03-15] MEDS ORDERED: MINERAL OIL 30 ML ORAL LIQD PO PRN (12:41)
[2021-03-15] MEDS ORDERED: NalbUPHINE 10 MG/1 ML INJ IV PRN (12:41)
[2021-03-15] MEDS ORDERED: miSOPROStol 200 MCG TAB PR PRN (12:41)
[2021-03-15] MEDS ORDERED: LOPERAMIDE 2 MG CAP PO PRN (12:41)
[2021-03-15] MEDS ORDERED: METHYLERGONOVINE MALEATE 0.2 MG/ML VIAL IM PRN (12:41)
[2021-03-15] MEDS ORDERED: LACTATED RINGERS 1,000 ML IV SCH (12:45)
--- NOTE | 2021-03-15 12:48 | Progress Note ---
Assessment and Plan - Patient Problems (1) Gestational hypertension without significant proteinuria Onset Date: ~03/15/21 Current Visit: Yes Status: Acute Qualifiers: Trimester: third trimester Qualified Code(s): O13.3 - Gestational [-induced] hypertension without significant proteinuria, third trimester Plan to address problem: Discharge cancelled due to a steady trend upward of blood pressures. Consulted with Dr Spear Decision made to keep pt and induce her. Went over to see pt at lunch. Exp findings and concerns with worsening elevated BP and need to move forward with IOL. Pt voiced understanding and agrees to POC. Will use pitocin protocol for now Will re-eval @ 1800. Pt aware this may take several days. All concerns addressed. Subjective - Subjective Date of service: 03/15/21 (pt agrees to POC; start IOL) Principal diagnosis: IUP @ 36.2 weeks gestation, CHTN GHTN Patient reports: movement normal, contractions, no loss of fluid, no vaginal bleeding Objective - Vital Signs Vital Signs: Vital Signs - 12hr 03/15/21 03/15/21 03/15/21 00:51 00:56 01:01 Temperature Pulse Rate 84 84 77 Blood Pressure O2 Sat by Pulse 97 97 100 Oximetry O2 Sat by Pulse Oximetry [ Bilateral Throughout] 03/15/21 03/15/21 03/15/21 01:06 01:11 01:16 Temperature Pulse Rate 70 67 65 Blood Pressure O2 Sat by Pulse 99 100 100 Oximetry O2 Sat by Pulse Oximetry [ Bilateral Throughout] 03/15/21 03/15/21 03/15/21 01:17 01:21 01:26 Temperature Pulse Rate 63 61 67 Blood Pressure 117/56 O2 Sat by Pulse 99 98 Oximetry O2 Sat by Pulse Oximetry [ Bilateral Throughout] 03/15/21 03/15/21 03/15/21 01:31 01:36 01:41 Temperature Pulse Rate 60 66 53 L Blood Pressure O2 Sat by Pulse 99 98 98 Oximetry O2 Sat by Pulse Oximetry [ Bilateral Throughout] 03/15/21 03/15/21 03/15/21 01:46 01:47 01:51 Temperature Pulse Rate 64 62 61 Blood Pressure 119/81 O2 Sat by Pulse 98 98 Oximetry O2 Sat by Pulse Oximetry [ Bilateral Throughout] 03/15/21 03/15/21 03/15/21 01:56 02:01 02:06 Temperature Pulse Rate 59 L 53 L 55 L Blood Pressure O2 Sat by Pulse 99 99 98 Oximetry O2 Sat by Pulse Oximetry [ Bilateral Throughout] 03/15/21 03/15/21 03/15/21 02:11 02:16 02:18 Temperature Pulse Rate 69 71 80 Blood Pressure 142/87 O2 Sat by Pulse 100 99 Oximetry O2 Sat by Pulse Oximetry [ Bilateral Throughout] 03/15/21 03/15/21 03/15/21 02:21 02:26 02:31 Temperature Pulse Rate 61 59 L 69 Blood Pressure O2 Sat by Pulse 100 99 98 Oximetry O2 Sat by Pulse Oximetry [ Bilateral Throughout] 03/15/21 03/15/21 03/15/21 02:36 02:41 02:46 Temperature Pulse Rate 67 65 62 Blood Pressure O2 Sat by Pulse 99 97 98 Oximetry O2 Sat by Pulse Oximetry [ Bilateral Throughout] 03/15/21 03/15/21 03/15/21 02:47 02:51 02:56 Temperature Pulse Rate 64 67 65 Blood Pressure 123/66 O2 Sat by Pulse 98 97 Oximetry O2 Sat by Pulse Oximetry [ Bilateral Throughout] 03/15/21 03/15/21 03/15/21 03:01 03:06 03:11 Temperature Pulse Rate 62 69 60 Blood Pressure O2 Sat by Pulse 97 96 96 Oximetry O2 Sat by Pulse Oximetry [ Bilateral Throughout] 03/15/21 03/15/21 03/15/21 03:12 03:16 03:17 Temperature Pulse Rate 74 82 76 Blood Pressure 123/66 O2 Sat by Pulse 94 96 Oximetry O2 Sat by Pulse Oximetry [ Bilateral Throughout] 03/15/21 03/15/21 03/15/21 03:21 03:26 03:31 Temperature Pulse Rate 72 73 68 Blood Pressure O2 Sat by Pulse 97 97 96 Oximetry O2 Sat by Pulse Oximetry [ Bilateral Throughout] 03/15/21 03/15/21 03/15/21 03:36 03:41 03:46 Temperature Pulse Rate 60 60 57 L Blood Pressure O2 Sat by Pulse 97 97 100 Oximetry O2 Sat by Pulse Oximetry [ Bilateral Throughout] 03/15/21 03/15/21 03/15/21 03:47 03:51 03:56 Temperature Pulse Rate 60 58 L 59 L Blood Pressure 132/80 O2 Sat by Pulse 100 100 Oximetry O2 Sat by Pulse Oximetry [ Bilateral Throughout] 03/15/21 03/15/21 03/15/21 04:01 04:06 04:11 Temperature Pulse Rate 59 L 64 61 Blood Pressure O2 Sat by Pulse 100 100 100 Oximetry O2 Sat by Pulse Oximetry [ Bilateral Throughout] 03/15/21 03/15/21 03/15/21 04:16 04:17 04:21 Temperature Pulse Rate 73 67 61 Blood Pressure 122/79 O2 Sat by Pulse 96 97 Oximetry O2 Sat by Pulse Oximetry [ Bilateral Throughout] 03/15/21 03/15/21 03/15/21 04:26 04:31 04:36 Temperature Pulse Rate 58 L 67 63 Blood Pressure O2 Sat by Pulse 97 96 97 Oximetry O2 Sat by Pulse Oximetry [ Bilateral Throughout] 03/15/21 03/15/21 03/15/21 04:41 04:42 04:46 Temperature Pulse Rate 65 67 64 Blood Pressure O2 Sat by Pulse 95 94 97 Oximetry O2 Sat by Pulse Oximetry [ Bilateral Throughout] 03/15/21 03/15/21 03/15/21 04:47 04:51 04:56 Temperature Pulse Rate 60 59 L 61 Blood Pressure 132/68 O2 Sat by Pulse 97 97 Oximetry O2 Sat by Pulse Oximetry [ Bilateral Throughout] 03/15/21 03/15/21 03/15/21 05:01 05:06 05:11 Temperature Pulse Rate 57 L 58 L 68 Blood Pressure O2 Sat by Pulse 98 98 98 Oximetry O2 Sat by Pulse Oximetry [ Bilateral Throughout] 03/15/21 03/15/21 03/15/21 05:16 05:17 05:21 Temperature Pulse Rate 78 78 74 Blood Pressure 114/79 O2 Sat by Pulse 98 98 Oximetry O2 Sat by Pulse Oximetry [ Bilateral Throughout] 03/15/21 03/15/21 03/15/21 05:26 05:31 05:36 Temperature Pulse Rate 64 65 63 Blood Pressure O2 Sat by Pulse 98 97 98 Oximetry O2 Sat by Pulse Oximetry [ Bilateral Throughout] 03/15/21 03/15/21 03/15/21 05:41 05:46 05:47 Temperature Pulse Rate 64 69 70 Blood Pressure 128/62 O2 Sat by Pulse 98 97 Oximetry O2 Sat by Pulse Oximetry [ Bilateral Throughout] 03/15/21 03/15/21 03/15/21 05:51 05:56 06:01 Temperature Pulse Rate 64 67 62 Blood Pressure O2 Sat by Pulse 97 100 100 Oximetry O2 Sat by Pulse Oximetry [ Bilateral Throughout] 03/15/21 03/15/21 03/15/21 06:06 06:11 06:16 Temperature Pulse Rate 65 57 L 59 L Blood Pressure O2 Sat by Pulse 100 97 100 Oximetry O2 Sat by Pulse Oximetry [ Bilateral Throughout] 03/15/21 03/15/21 03/15/21 06:17 06:21 06:26 Temperature Pulse Rate 60 59 L 65 Blood Pressure 130/75 O2 Sat by Pulse 99 99 Oximetry O2 Sat by Pulse Oximetry [ Bilateral Throughout] 03/15/21 03/15/21 03/15/21 06:31 06:33 06:36 Temperature Pulse Rate 60 70 58 L Blood Pressure O2 Sat by Pulse 100 92 99 Oximetry O2 Sat by Pulse Oximetry [ Bilateral Throughout] 03/15/21 03/15/21 03/15/21 06:41 06:46 06:47 Temperature Pulse Rate 61 54 L 59 L Blood Pressure 142/91 O2 Sat by Pulse 98 99 Oximetry O2 Sat by Pulse Oximetry [ Bilateral Throughout] 03/15/21 03/15/21 03/15/21 06:51 06:56 07:01 Temperature Pulse Rate 58 L 64 69 Blood Pressure O2 Sat by Pulse 100 97 100 Oximetry O2 Sat by Pulse Oximetry [ Bilateral Throughout] 03/15/21 03/15/21 03/15/21 07:06 07:11 07:16 Temperature Pulse Rate 72 59 L 72 Blood Pressure O2 Sat by Pulse 100 100 100 Oximetry O2 Sat by Pulse Oximetry [ Bilateral Throughout] 03/15/21 03/15/21 03/15/21 07:17 07:21 07:26 Temperature Pulse Rate 76 61 60 Blood Pressure 117/69 O2 Sat by Pulse 100 100 Oximetry O2 Sat by Pulse Oximetry [ Bilateral Throughout] 03/15/21 03/15/21 03/15/21 07:31 07:36 07:41 Temperature Pulse Rate 58 L 65 57 L Blood Pressure O2 Sat by Pulse 100 99 100 Oximetry O2 Sat by Pulse Oximetry [ Bilateral Throughout] 03/15/21 03/15/21 03/15/21 07:45 07:46 07:47 Temperature Pulse Rate 80 58 L 54 L Blood Pressure 147/97 O2 Sat by Pulse 92 99 Oximetry O2 Sat by Pulse Oximetry [ Bilateral Throughout] 03/15/21 03/15/21 03/15/21 07:51 07:56 08:01 Temperature Pulse Rate 79 63 66 Blood Pressure O2 Sat by Pulse 97 100 100 Oximetry O2 Sat by Pulse Oximetry [ Bilateral Throughout] 03/15/21 03/15/21 03/15/21 08:06 08:11 08:16 Temperature Pulse Rate 59 L 53 L 64 Blood Pressure O2 Sat by Pulse 99 100 99 Oximetry O2 Sat by Pulse Oximetry [ Bilateral Throughout] 03/15/21 03/15/21 03/15/21 08:17 08:21 08:23 Temperature Pulse Rate 62 68 Blood Pressure 135/95 O2 Sat by Pulse 100 Oximetry O2 Sat by Pulse 98 Oximetry [ Bilateral Throughout] 03/15/21 03/15/21 03/15/21 08:26 08:30 08:31 Temperature 98.7 F Pulse Rate 76 65 Blood Pressure O2 Sat by Pulse 99 100 Oximetry O2 Sat by Pulse Oximetry [ Bilateral Throughout] 03/15/21 03/15/21 03/15/21 08:36 08:41 08:46 Temperature Pulse Rate 67 63 66 Blood Pressure O2 Sat by Pulse 99 98 99 Oximetry O2 Sat by Pulse Oximetry [ Bilateral Throughout] 03/15/21 03/15/21 03/15/21 08:47 08:51 08:56 Temperature Pulse Rate 67 63 62 Blood Pressure 144/95 O2 Sat by Pulse 100 99 Oximetry O2 Sat by Pulse Oximetry [ Bilateral Throughout] 03/15/21 03/15/21 03/15/21 09:01 09:06 09:11 Temperature Pulse Rate 75 69 76 Blood Pressure O2 Sat by Pulse 100 100 99 Oximetry O2 Sat by Pulse Oximetry [ Bilateral Throughout] 03/15/21 03/15/21 03/15/21 09:16 09:17 09:21 Temperature Pulse Rate 62 71 80 Blood Pressure 151/98 O2 Sat by Pulse 100 100 Oximetry O2 Sat by Pulse Oximetry [ Bilateral Throughout] 03/15/21 03/15/21 03/15/21 09:26 09:31 09:36 Temperature Pulse Rate 69 71 65 Blood Pressure O2 Sat by Pulse 100 100 99 Oximetry O2 Sat by Pulse Oximetry [ Bilateral Throughout] 03/15/21 03/15/21 03/15/21 09:41 09:46 09:47 Temperature Pulse Rate 64 67 71 Blood Pressure 126/79 O2 Sat by Pulse 100 100 Oximetry O2 Sat by Pulse Oximetry [ Bilateral Throughout] 03/15/21 03/15/21 03/15/21 09:51 09:56 10:28 Temperature Pulse Rate 66 72 64 Blood Pressure 146/91 O2 Sat by Pulse 99 99 Oximetry O2 Sat by Pulse Oximetry [ Bilateral Throughout] 03/15/21 03/15/21 11:39 12:32 Temperature Pulse Rate 70 77 Blood Pressure 143/94 127/77 O2 Sat by Pulse Oximetry O2 Sat by Pulse Oximetry [ Bilateral Throughout] - Exam Breasts: deferred Cardiovascular: Regular rate Abdomen: Present: normal appearance, soft. Absent: distention, tenderness Uterus: Present: normal FHR: auscultation normal, category 1 Uterine Contraction Monitor Mode: External Cervical Dilatation: 0 Cervical Effacement Percentage: 40 station: -2 Uterine Tone Measurement Phase: Resting Extremities: edema (feet ankles bilateral) Deep Tendon Reflex Grade: Normal +2 - Labs Labs: Abnormal Labs 03/13/21 03/13/21 10:07 13:56 Creatinine 0.5 L Ur Total Protein 24 Hr 216.00 H Urine Total Protein 18 H Laboratory Results - last 24 hr 03/13/21 03/14/21 13:56 Unknown Urine Total Volume 1200 Ur Total Protein 24 Hr 216.00 H Urine Total Protein 18 H Coronavirus (PCR) Negative
[2021-03-15] MEDS ORDERED: OXYTOCIN DRIP 30 UNITS/500 ML BAG IV SCH (13:00)
[2021-03-15] MEDS: LACTATED RINGERS 1,000 ML IV SCH (14:54)
[2021-03-15] MEDS: OXYTOCIN DRIP 30 UNITS/500 ML BAG IV SCH (14:59)
[2021-03-15 19:17] LABS: Hematocrit 35.2 % (30.3-42.9); Hemoglobin 11.6 gm/dl (10.1-14.3); Mean Corpuscular HGB Conc 33 % (30-34); Mean Corpuscular Volume 90 fl (79-97); Platelet Count 174 K/mm3 (140-440); Red Blood Count 3.93 M/mm3 (3.65-5.03); Red Cell Distribution Width 13.8 % (13.2-15.2)
--- NOTE | 2021-03-15 19:43 | Progress Note ---
Assessment and Plan Pt sitting in bed without complaints this evening; VSS. Denies BURT, RUQ pain, and vision changes. POC d/w pt with risks and benefits. Discussed IOL may take several days. Pt verbalizes understanding and agrees to continue IOL as ordered. Plan to place cervidil @2000 and monitor closely. Notify provider with any changes in status; anticipate . Dr. Spear aware. 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 Current Visit: Yes Status: Acute Plan to address problem: Valtrex as ordered for outbreak prevention Subjective - Subjective Date of service: 03/15/21 Principal diagnosis: IUP @ 36.3 weeks gestation, IOL for worsening CHTN in Patient reports: movement normal, no new complaints, no loss of fluid, no vaginal bleeding, no contractions Objective - Vital Signs Vital Signs: Vital Signs - 12hr 03/15/21 03/15/21 03/15/21 07:45 07:46 07:47 Temperature Pulse Rate 80 58 L 54 L Respiratory Rate Blood Pressure 147/97 O2 Sat by Pulse 92 99 Oximetry O2 Sat by Pulse Oximetry [ Bilateral Throughout] 03/15/21 03/15/21 03/15/21 07:51 07:56 08:01 Temperature Pulse Rate 79 63 66 Respiratory Rate Blood Pressure O2 Sat by Pulse 97 100 100 Oximetry O2 Sat by Pulse Oximetry [ Bilateral Throughout] 03/15/21 03/15/21 03/15/21 08:06 08:11 08:16 Temperature Pulse Rate 59 L 53 L 64 Respiratory Rate Blood Pressure O2 Sat by Pulse 99 100 99 Oximetry O2 Sat by Pulse Oximetry [ Bilateral Throughout] 03/15/21 03/15/21 03/15/21 08:17 08:21 08:23 Temperature Pulse Rate 62 68 Respiratory Rate Blood Pressure 135/95 O2 Sat by Pulse 100 Oximetry O2 Sat by Pulse 98 Oximetry [ Bilateral Throughout] 03/15/21 03/15/21 03/15/21 08:26 08:30 08:31 Temperature 98.7 F Pulse Rate 76 65 Respiratory Rate Blood Pressure O2 Sat by Pulse 99 100 Oximetry O2 Sat by Pulse Oximetry [ Bilateral Throughout] 03/15/21 03/15/21 03/15/21 08:36 08:41 08:46 Temperature Pulse Rate 67 63 66 Respiratory Rate Blood Pressure O2 Sat by Pulse 99 98 99 Oximetry O2 Sat by Pulse Oximetry [ Bilateral Throughout] 03/15/21 03/15/21 03/15/21 08:47 08:51 08:56 Temperature Pulse Rate 67 63 62 Respiratory Rate Blood Pressure 144/95 O2 Sat by Pulse 100 99 Oximetry O2 Sat by Pulse Oximetry [ Bilateral Throughout] 03/15/21 03/15/21 03/15/21 09:01 09:06 09:11 Temperature Pulse Rate 75 69 76 Respiratory Rate Blood Pressure O2 Sat by Pulse 100 100 99 Oximetry O2 Sat by Pulse Oximetry [ Bilateral Throughout] 03/15/21 03/15/21 03/15/21 09:16 09:17 09:21 Temperature Pulse Rate 62 71 80 Respiratory Rate Blood Pressure 151/98 O2 Sat by Pulse 100 100 Oximetry O2 Sat by Pulse Oximetry [ Bilateral Throughout] 03/15/21 03/15/21 03/15/21 09:26 09:31 09:36 Temperature Pulse Rate 69 71 65 Respiratory Rate Blood Pressure O2 Sat by Pulse 100 100 99 Oximetry O2 Sat by Pulse Oximetry [ Bilateral Throughout] 03/15/21 03/15/21 03/15/21 09:41 09:46 09:47 Temperature Pulse Rate 64 67 71 Respiratory Rate Blood Pressure 126/79 O2 Sat by Pulse 100 100 Oximetry O2 Sat by Pulse Oximetry [ Bilateral Throughout] 03/15/21 03/15/21 03/15/21 09:51 09:56 10:28 Temperature Pulse Rate 66 72 64 Respiratory Rate Blood Pressure 146/91 O2 Sat by Pulse 99 99 Oximetry O2 Sat by Pulse Oximetry [ Bilateral Throughout] 03/15/21 03/15/21 03/15/21 11:39 12:32 14:43 Temperature Pulse Rate 70 77 79 Respiratory Rate Blood Pressure 143/94 127/77 O2 Sat by Pulse 99 Oximetry O2 Sat by Pulse Oximetry [ Bilateral Throughout] 03/15/21 03/15/21 03/15/21 14:48 14:50 14:53 Temperature Pulse Rate 69 70 70 Respiratory Rate Blood Pressure 144/85 O2 Sat by Pulse 99 99 Oximetry O2 Sat by Pulse Oximetry [ Bilateral Throughout] 03/15/21 03/15/21 03/15/21 14:58 15:00 15:03 Temperature 99.1 F Pulse Rate 74 73 Respiratory Rate Blood Pressure O2 Sat by Pulse 98 99 Oximetry O2 Sat by Pulse Oximetry [ Bilateral Throughout] 03/15/21 03/15/21 03/15/21 15:08 15:13 15:18 Temperature Pulse Rate 67 68 67 Respiratory Rate Blood Pressure O2 Sat by Pulse 98 98 100 Oximetry O2 Sat by Pulse Oximetry [ Bilateral Throughout] 03/15/21 03/15/21 03/15/21 15:21 15:23 15:28 Temperature Pulse Rate 63 83 74 Respiratory Rate Blood Pressure 139/72 O2 Sat by Pulse 98 98 Oximetry O2 Sat by Pulse Oximetry [ Bilateral Throughout] 03/15/21 03/15/21 03/15/21 15:33 15:38 15:43 Temperature Pulse Rate 63 74 81 Respiratory Rate Blood Pressure O2 Sat by Pulse 99 98 99 Oximetry O2 Sat by Pulse Oximetry [ Bilateral Throughout] 03/15/21 03/15/21 03/15/21 15:48 15:50 15:53 Temperature Pulse Rate 62 65 64 Respiratory Rate Blood Pressure 132/75 O2 Sat by Pulse 98 98 Oximetry O2 Sat by Pulse Oximetry [ Bilateral Throughout] 03/15/21 03/15/21 03/15/21 15:58 16:03 16:08 Temperature Pulse Rate 64 62 58 L Respiratory Rate Blood Pressure O2 Sat by Pulse 98 98 98 Oximetry O2 Sat by Pulse Oximetry [ Bilateral Throughout] 03/15/21 03/15/21 03/15/21 16:13 16:18 16:20 Temperature Pulse Rate 57 L 58 L 71 Respiratory Rate Blood Pressure 139/81 O2 Sat by Pulse 98 99 Oximetry O2 Sat by Pulse Oximetry [ Bilateral Throughout] 03/15/21 03/15/21 03/15/21 16:21 16:23 16:28 Temperature 98.8 F Pulse Rate 69 68 Respiratory 20 Rate Blood Pressure O2 Sat by Pulse 98 99 Oximetry O2 Sat by Pulse Oximetry [ Bilateral Throughout] 03/15/21 03/15/21 03/15/21 16:33 16:38 16:43 Temperature Pulse Rate 61 62 71 Respiratory Rate Blood Pressure O2 Sat by Pulse 99 98 99 Oximetry O2 Sat by Pulse Oximetry [ Bilateral Throughout] 03/15/21 03/15/21 03/15/21 16:48 16:50 16:53 Temperature Pulse Rate 67 65 64 Respiratory Rate Blood Pressure 132/75 O2 Sat by Pulse 97 97 Oximetry O2 Sat by Pulse Oximetry [ Bilateral Throughout] 03/15/21 03/15/21 03/15/21 16:58 17:03 17:08 Temperature Pulse Rate 71 67 66 Respiratory Rate Blood Pressure O2 Sat by Pulse 98 99 97 Oximetry O2 Sat by Pulse Oximetry [ Bilateral Throughout] 03/15/21 03/15/21 03/15/21 17:13 17:18 17:20 Temperature Pulse Rate 65 63 68 Respiratory Rate Blood Pressure 129/83 O2 Sat by Pulse 99 99 Oximetry O2 Sat by Pulse Oximetry [ Bilateral Throughout] 03/15/21 03/15/21 03/15/21 17:23 17:28 17:33 Temperature Pulse Rate 60 66 62 Respiratory Rate Blood Pressure O2 Sat by Pulse 98 99 99 Oximetry O2 Sat by Pulse Oximetry [ Bilateral Throughout] 03/15/21 03/15/21 03/15/21 17:38 17:43 17:48 Temperature Pulse Rate 65 59 L 65 Respiratory Rate Blood Pressure O2 Sat by Pulse 99 99 98 Oximetry O2 Sat by Pulse Oximetry [ Bilateral Throughout] 03/15/21 03/15/21 03/15/21 17:51 17:53 17:58 Temperature Pulse Rate 56 L 63 62 Respiratory Rate Blood Pressure 138/70 O2 Sat by Pulse 98 98 Oximetry O2 Sat by Pulse Oximetry [ Bilateral Throughout] 03/15/21 03/15/21 03/15/21 18:03 18:08 18:13 Temperature Pulse Rate 60 67 52 L Respiratory Rate Blood Pressure O2 Sat by Pulse 98 98 100 Oximetry O2 Sat by Pulse Oximetry [ Bilateral Throughout] 03/15/21 03/15/21 03/15/21 18:18 18:20 18:23 Temperature Pulse Rate 66 63 64 Respiratory Rate Blood Pressure 134/79 O2 Sat by Pulse 99 100 Oximetry O2 Sat by Pulse Oximetry [ Bilateral Throughout] 03/15/21 03/15/21 03/15/21 18:28 18:32 18:33 Temperature Pulse Rate 68 89 58 L Respiratory Rate Blood Pressure O2 Sat by Pulse 96 92 97 Oximetry O2 Sat by Pulse Oximetry [ Bilateral Throughout] 03/15/21 03/15/21 03/15/21 18:38 18:43 18:48 Temperature Pulse Rate 55 L 64 59 L Respiratory Rate Blood Pressure O2 Sat by Pulse 99 99 99 Oximetry O2 Sat by Pulse Oximetry [ Bilateral Throughout] 03/15/21 03/15/21 03/15/21 18:51 18:53 18:58 Temperature Pulse Rate 52 L 56 L 58 L Respiratory Rate Blood Pressure 134/75 O2 Sat by Pulse 98 98 Oximetry O2 Sat by Pulse Oximetry [ Bilateral Throughout] 03/15/21 03/15/21 03/15/21 19:03 19:08 19:13 Temperature Pulse Rate 66 55 L 59 L Respiratory Rate Blood Pressure O2 Sat by Pulse 98 100 99 Oximetry O2 Sat by Pulse Oximetry [ Bilateral Throughout] 03/15/21 03/15/21 03/15/21 19:18 19:20 19:23 Temperature Pulse Rate 53 L 58 L 60 Respiratory Rate Blood Pressure 119/64 O2 Sat by Pulse 99 100 Oximetry O2 Sat by Pulse Oximetry [ Bilateral Throughout] 03/15/21 03/15/21 03/15/21 19:28 19:33 19:38 Temperature Pulse Rate 57 L 56 L 69 Respiratory Rate Blood Pressure O2 Sat by Pulse 99 99 98 Oximetry O2 Sat by Pulse Oximetry [ Bilateral Throughout] - Exam Breasts: deferred Cardiovascular: Regular rate Lungs: Normal air movement Abdomen: Present: normal appearance, soft Vulva: both: normal Uterus: Present: normal. Absent: firm, tenderness FHR: auscultation normal, category 1 Uterine Contraction Monitor Mode: Palpation Uterine Contraction Pattern: Absent Uterine Tone Measurement Phase: Resting Extremities: normal - Labs Labs: Abnormal Labs 03/13/21 03/13/21 10:07 13:56 Creatinine 0.5 L Ur Total Protein 24 Hr 216.00 H Urine Total Protein 18 H Laboratory Results - last 24 hr 03/15/21 18:30 WBC 7.7 RBC 3.93 Hgb 11.6 Hct 35.2 MCV 90 MCH 30 MCHC 33 RDW 13.8 Plt Count 174
[2021-03-15] MEDS ORDERED: DINOPROSTONE 10 MG VAG SUPP VG ONE (20:00)
[2021-03-15] MEDS: fentaNYL 100 MCG/2 ML INJ IV PRN (22:24)
[2021-03-15] MEDS: valACYclovir 500 MG TAB PO SCH (22:34)
[2021-03-16] MEDS: fentaNYL 100 MCG/2 ML INJ IV PRN ×7 (00:48→20:36)
[2021-03-16] MEDS: ONDANSETRON 4 MG/2 ML INJ IV PRN (04:57)
--- NOTE | 2021-03-16 07:36 | Progress Note ---
Assessment and Plan A: 25 y.o. @ 36.4 wks, IOL d/t cHTN with continued elevated blood pressures. P: Cervidil removed. Start Pitocin per protocol. Monitor for s/sx of pre eclampsia. Subjective - Subjective Date of service: 03/16/21 Principal diagnosis: IUP @ 36.4 weeks gestation, IOL for worsening CHTN in Patient reports: movement normal, contractions Objective - Vital Signs Vital Signs: Vital Signs - 12hr 03/15/21 03/15/21 03/15/21 19:38 19:43 19:48 Temperature Pulse Rate 69 76 59 L Respiratory Rate Blood Pressure O2 Sat by Pulse 98 93 99 Oximetry 03/15/21 03/15/21 03/15/21 19:50 19:53 19:58 Temperature Pulse Rate 71 64 59 L Respiratory Rate Blood Pressure 133/89 O2 Sat by Pulse 98 99 Oximetry 03/15/21 03/15/21 03/15/21 20:03 20:08 20:13 Temperature Pulse Rate 65 64 62 Respiratory Rate Blood Pressure O2 Sat by Pulse 99 99 100 Oximetry 03/15/21 03/15/21 03/15/21 20:18 20:21 20:23 Temperature Pulse Rate 62 60 59 L Respiratory Rate Blood Pressure 131/80 O2 Sat by Pulse 99 100 Oximetry 03/15/21 03/15/21 03/15/21 20:28 20:30 20:33 Temperature 98.4 F Pulse Rate 59 L 58 L Respiratory Rate Blood Pressure O2 Sat by Pulse 99 99 Oximetry 03/15/21 03/15/21 03/15/21 20:38 20:43 20:48 Temperature Pulse Rate 62 59 L 62 Respiratory Rate Blood Pressure O2 Sat by Pulse 99 98 99 Oximetry 03/15/21 03/15/21 03/15/21 20:50 20:53 20:58 Temperature Pulse Rate 65 62 56 L Respiratory Rate Blood Pressure 144/104 O2 Sat by Pulse 98 99 Oximetry 03/15/21 03/15/21 03/15/21 21:02 21:03 21:08 Temperature Pulse Rate 59 L 57 L 65 Respiratory Rate Blood Pressure 137/84 O2 Sat by Pulse 98 99 Oximetry 03/15/21 03/15/21 03/15/21 21:13 21:18 21:20 Temperature Pulse Rate 58 L 54 L 52 L Respiratory Rate Blood Pressure 138/84 O2 Sat by Pulse 100 99 Oximetry 03/15/21 03/15/21 03/15/21 21:23 21:28 21:33 Temperature Pulse Rate 55 L 55 L 67 Respiratory Rate Blood Pressure O2 Sat by Pulse 99 100 97 Oximetry 03/15/21 03/15/21 03/15/21 21:38 21:43 21:46 Temperature Pulse Rate 59 L 71 55 L Respiratory Rate Blood Pressure O2 Sat by Pulse 98 99 94 Oximetry 03/15/21 03/15/21 03/15/21 21:48 21:51 21:53 Temperature Pulse Rate 68 57 L 62 Respiratory Rate Blood Pressure 144/84 O2 Sat by Pulse 98 99 Oximetry 03/15/21 03/15/21 03/15/21 21:58 22:03 22:08 Temperature Pulse Rate 61 60 64 Respiratory Rate Blood Pressure O2 Sat by Pulse 98 98 97 Oximetry 03/15/21 03/15/21 03/15/21 22:13 22:18 22:21 Temperature Pulse Rate 59 L 64 57 L Respiratory Rate Blood Pressure 146/91 O2 Sat by Pulse 98 98 Oximetry 03/15/21 03/15/21 03/15/21 22:23 22:28 22:33 Temperature Pulse Rate 68 70 67 Respiratory Rate Blood Pressure O2 Sat by Pulse 99 98 96 Oximetry 03/15/21 03/15/21 03/15/21 22:37 22:38 22:43 Temperature Pulse Rate 67 69 68 Respiratory Rate Blood Pressure O2 Sat by Pulse 93 94 96 Oximetry 03/15/21 03/15/21 03/15/21 22:48 22:50 22:53 Temperature Pulse Rate 76 67 68 Respiratory Rate Blood Pressure 142/83 O2 Sat by Pulse 95 94 95 Oximetry 03/15/21 03/15/21 03/15/21 22:58 23:03 23:08 Temperature Pulse Rate 70 66 57 L Respiratory Rate Blood Pressure O2 Sat by Pulse 95 99 99 Oximetry 03/15/21 03/15/21 03/15/21 23:13 23:18 23:21 Temperature Pulse Rate 67 63 60 Respiratory Rate Blood Pressure 170/96 O2 Sat by Pulse 99 98 Oximetry 03/15/21 03/15/21 03/15/21 23:23 23:28 23:33 Temperature Pulse Rate 59 L 60 64 Respiratory Rate Blood Pressure O2 Sat by Pulse 100 98 99 Oximetry 03/15/21 03/15/21 03/15/21 23:38 23:43 23:48 Temperature Pulse Rate 79 69 60 Respiratory Rate Blood Pressure O2 Sat by Pulse 94 99 98 Oximetry 03/15/21 03/15/21 03/15/21 23:51 23:53 23:58 Temperature Pulse Rate 60 81 55 L Respiratory Rate Blood Pressure 135/83 O2 Sat by Pulse 97 100 Oximetry 03/16/21 03/16/21 03/16/21 00:03 00:08 00:13 Temperature Pulse Rate 65 66 64 Respiratory Rate Blood Pressure O2 Sat by Pulse 97 96 99 Oximetry 03/16/21 03/16/21 03/16/21 00:18 00:21 00:23 Temperature Pulse Rate 67 74 70 Respiratory Rate Blood Pressure 134/78 O2 Sat by Pulse 98 95 Oximetry 03/16/21 03/16/21 03/16/21 00:28 00:30 00:33 Temperature Pulse Rate 71 71 72 Respiratory Rate Blood Pressure O2 Sat by Pulse 95 94 94 Oximetry 03/16/21 03/16/21 03/16/21 00:38 00:43 00:48 Temperature Pulse Rate 69 75 63 Respiratory Rate Blood Pressure O2 Sat by Pulse 99 99 99 Oximetry 03/16/21 03/16/21 03/16/21 00:51 00:53 00:55 Temperature Pulse Rate 57 L 71 99 H Respiratory Rate Blood Pressure 140/91 O2 Sat by Pulse 96 94 Oximetry 03/16/21 03/16/21 03/16/21 00:58 01:01 01:03 Temperature Pulse Rate 89 84 86 Respiratory Rate Blood Pressure O2 Sat by Pulse 93 94 94 Oximetry 03/16/21 03/16/21 03/16/21 01:07 01:08 01:13 Temperature Pulse Rate 90 87 82 Respiratory Rate Blood Pressure O2 Sat by Pulse 94 94 94 Oximetry 03/16/21 03/16/21 03/16/21 01:18 01:21 01:23 Temperature Pulse Rate 84 62 65 Respiratory Rate Blood Pressure 144/77 O2 Sat by Pulse 97 93 Oximetry 03/16/21 03/16/21 03/16/21 01:24 01:28 01:32 Temperature Pulse Rate 71 69 69 Respiratory Rate Blood Pressure O2 Sat by Pulse 94 94 94 Oximetry 03/16/21 03/16/21 03/16/21 01:33 01:37 01:38 Temperature Pulse Rate 77 70 70 Respiratory Rate Blood Pressure O2 Sat by Pulse 99 91 93 Oximetry 03/16/21 03/16/21 03/16/21 01:42 01:43 01:48 Temperature Pulse Rate 68 75 73 Respiratory Rate Blood Pressure O2 Sat by Pulse 94 93 97 Oximetry 03/16/21 03/16/21 03/16/21 01:51 01:52 01:53 Temperature Pulse Rate 59 L 84 66 Respiratory Rate Blood Pressure 138/92 O2 Sat by Pulse 88 95 Oximetry 03/16/21 03/16/21 03/16/21 01:58 01:59 02:04 Temperature Pulse Rate 72 68 74 Respiratory Rate Blood Pressure O2 Sat by Pulse 94 99 99 Oximetry 03/16/21 03/16/21 03/16/21 02:09 02:14 02:15 Temperature Pulse Rate 76 59 L 64 Respiratory Rate Blood Pressure O2 Sat by Pulse 99 99 86 Oximetry 03/16/21 03/16/21 03/16/21 02:19 02:22 02:24 Temperature Pulse Rate 76 65 84 Respiratory Rate Blood Pressure O2 Sat by Pulse 89 90 98 Oximetry 03/16/21 03/16/21 03/16/21 02:29 02:34 02:39 Temperature Pulse Rate 75 74 69 Respiratory Rate Blood Pressure O2 Sat by Pulse 98 100 95 Oximetry 03/16/21 03/16/21 03/16/21 02:44 02:45 02:49 Temperature Pulse Rate 65 78 75 Respiratory Rate Blood Pressure O2 Sat by Pulse 96 93 94 Oximetry 03/16/21 03/16/21 03/16/21 02:51 02:54 02:59 Temperature Pulse Rate 70 74 100 H Respiratory Rate Blood Pressure 143/78 O2 Sat by Pulse 94 97 Oximetry 03/16/21 03/16/21 03/16/21 03:01 03:04 03:08 Temperature Pulse Rate 91 H 85 78 Respiratory Rate Blood Pressure O2 Sat by Pulse 94 96 94 Oximetry 03/16/21 03/16/21 03/16/21 03:09 03:14 03:19 Temperature Pulse Rate 83 78 93 H Respiratory Rate Blood Pressure O2 Sat by Pulse 96 94 92 Oximetry 03/16/21 03/16/21 03/16/21 03:20 03:21 03:24 Temperature Pulse Rate 86 87 89 Respiratory Rate Blood Pressure 136/69 O2 Sat by Pulse 93 95 Oximetry 03/16/21 03/16/21 03/16/21 03:26 03:29 03:32 Temperature Pulse Rate 86 87 87 Respiratory Rate Blood Pressure O2 Sat by Pulse 94 95 94 Oximetry 03/16/21 03/16/21 03/16/21 03:34 03:37 03:39 Temperature Pulse Rate 87 89 89 Respiratory Rate Blood Pressure O2 Sat by Pulse 95 94 93 Oximetry 03/16/21 03/16/21 03/16/21 03:42 03:44 03:47 Temperature Pulse Rate 89 90 90 Respiratory Rate Blood Pressure O2 Sat by Pulse 94 95 94 Oximetry 03/16/21 03/16/21 03/16/21 03:49 03:50 03:53 Temperature Pulse Rate 90 90 89 Respiratory Rate Blood Pressure 130/73 O2 Sat by Pulse 95 94 Oximetry 03/16/21 03/16/21 03/16/21 03:54 03:58 03:59 Temperature Pulse Rate 89 90 90 Respiratory Rate Blood Pressure O2 Sat by Pulse 94 94 94 Oximetry 03/16/21 03/16/21 03/16/21 04:04 04:05 04:09 Temperature Pulse Rate 89 93 H 93 H Respiratory Rate Blood Pressure O2 Sat by Pulse 98 91 95 Oximetry 03/16/21 03/16/21 03/16/21 04:11 04:14 04:16 Temperature Pulse Rate 91 H 81 91 H Respiratory Rate Blood Pressure O2 Sat by Pulse 94 94 93 Oximetry 03/16/21 03/16/21 03/16/21 04:19 04:20 04:22 Temperature Pulse Rate 84 90 87 Respiratory Rate Blood Pressure 129/66 O2 Sat by Pulse 94 94 Oximetry 03/16/21 03/16/21 03/16/21 04:24 04:29 04:34 Temperature Pulse Rate 91 H 89 90 Respiratory Rate Blood Pressure O2 Sat by Pulse 94 96 94 Oximetry 03/16/21 03/16/21 03/16/21 04:39 04:44 04:49 Temperature Pulse Rate 89 104 H 72 Respiratory Rate Blood Pressure O2 Sat by Pulse 94 94 99 Oximetry 03/16/21 03/16/21 03/16/21 04:51 04:54 04:57 Temperature Pulse Rate 75 88 Respiratory 26 H Rate Blood Pressure 140/92 O2 Sat by Pulse 99 Oximetry 03/16/21 03/16/21 03/16/21 04:59 05:04 05:06 Temperature Pulse Rate 73 79 83 Respiratory Rate Blood Pressure O2 Sat by Pulse 98 97 94 Oximetry 03/16/21 03/16/21 03/16/21 05:09 05:13 05:14 Temperature Pulse Rate 81 89 93 H Respiratory Rate Blood Pressure O2 Sat by Pulse 94 94 94 Oximetry 03/16/21 03/16/21 03/16/21 05:19 05:20 05:24 Temperature Pulse Rate 95 H 93 H 91 H Respiratory Rate Blood Pressure 131/57 O2 Sat by Pulse 91 91 Oximetry 03/16/21 03/16/21 03/16/21 05:29 05:34 05:39 Temperature Pulse Rate 91 H 92 H 92 H Respiratory Rate Blood Pressure O2 Sat by Pulse 92 92 93 Oximetry 03/16/21 03/16/21 03/16/21 05:44 05:49 05:51 Temperature Pulse Rate 91 H 90 96 H Respiratory Rate Blood Pressure 125/68 O2 Sat by Pulse 93 93 Oximetry 03/16/21 03/16/21 03/16/21 05:54 05:56 05:57 Temperature Pulse Rate 94 H 92 H Respiratory 18 Rate Blood Pressure O2 Sat by Pulse 95 94 Oximetry 03/16/21 03/16/21 03/16/21 05:59 06:02 06:04 Temperature Pulse Rate 92 H 93 H 93 H Respiratory Rate Blood Pressure O2 Sat by Pulse 95 94 93 Oximetry 03/16/21 03/16/21 03/16/21 06:07 06:09 06:14 Temperature Pulse Rate 93 H 95 H 94 H Respiratory Rate Blood Pressure O2 Sat by Pulse 94 94 95 Oximetry 03/16/21 03/16/21 03/16/21 06:15 06:19 06:21 Temperature Pulse Rate 94 H 93 H 96 H Respiratory Rate Blood Pressure 121/69 O2 Sat by Pulse 94 95 93 Oximetry 03/16/21 03/16/21 03/16/21 06:24 06:27 06:29 Temperature Pulse Rate 94 H 94 H 98 H Respiratory Rate Blood Pressure O2 Sat by Pulse 95 94 97 Oximetry 03/16/21 03/16/21 03/16/21 06:32 06:34 06:37 Temperature Pulse Rate 99 H 97 H 95 H Respiratory Rate Blood Pressure O2 Sat by Pulse 93 97 94 Oximetry 03/16/21 03/16/21 03/16/21 06:39 06:44 06:46 Temperature Pulse Rate 96 H 86 91 H Respiratory Rate Blood Pressure O2 Sat by Pulse 98 95 94 Oximetry 03/16/21 03/16/21 03/16/21 06:49 06:52 06:54 Temperature Pulse Rate 90 93 H 91 H Respiratory Rate Blood Pressure 128/75 O2 Sat by Pulse 94 93 93 Oximetry 03/16/21 03/16/21 03/16/21 06:59 07:04 07:09 Temperature Pulse Rate 95 H 94 H 93 H Respiratory Rate Blood Pressure O2 Sat by Pulse 96 96 97 Oximetry 03/16/21 03/16/21 03/16/21 07:14 07:19 07:20 Temperature Pulse Rate 92 H 92 H 91 H Respiratory Rate Blood Pressure 132/73 O2 Sat by Pulse 97 96 Oximetry 03/16/21 03/16/21 03/16/21 07:24 07:29 07:34 Temperature Pulse Rate 93 H 93 H 95 H Respiratory Rate Blood Pressure O2 Sat by Pulse 98 97 96 Oximetry - Exam Narrative Exam: Pt denies BURT, blurred vision, spots before her eyes, chest pain, shortness of breath, and upper abdominal pain. Blood pressure ranges have been 120-150's/70-90's. Breasts: deferred Cardiovascular: Regular rate Lungs: Normal air movement Abdomen: Present: normal appearance Vulva: both: normal FHR: category 1 Uterine Contraction Monitor Mode: External Cervical Dilatation: 0 Cervical Effacement Percentage: 40 station: -2 Uterine Contraction Pattern: Irregular Uterine Tone Measurement Phase: Resting Uterine Contraction Intensity: Mild - Labs Labs: Abnormal Labs 03/13/21 03/13/21 10:07 13:56 Creatinine 0.5 L Ur Total Protein 24 Hr 216.00 H Urine Total Protein 18 H Laboratory Results - last 24 hr 03/15/21 03/15/21 03/15/21 18:30 18:46 18:46 WBC 7.7 RBC 3.93 Hgb 11.6 Hct 35.2 MCV 90 MCH 30 MCHC 33 RDW 13.8 Plt Count 174 Syphilis IgG Antibody Nonreactive Blood Type O POSITIVE Antibody Screen Negative
[2021-03-16] MEDS: OXYTOCIN DRIP 30 UNITS/500 ML BAG IV SCH (07:56)
[2021-03-16] MEDS: LACTATED RINGERS 1,000 ML IV SCH ×2 (07:59→16:48)
[2021-03-16] MEDS: PRENATAL VIT27-FE FUMARATE-FOLIC ACID VIT TAB PO SCH (10:06)
[2021-03-16] MEDS: valACYclovir 500 MG TAB PO SCH ×2 (10:10→23:00)
--- NOTE | 2021-03-16 16:42 | Progress Note ---
Assessment and Plan A: 25 y.o. @ 36.4 wks, with worsening cHTN in third trimester. Cervical exam /. P: Pitocin to be turned off. Will allow pt to eat dinner since blood pressures have been stable all day. Cervidil to be inserted @ 1930. Will continue to monitor for s/sx of pre eclampsia. Subjective - Subjective Date of service: 03/16/21 Principal diagnosis: IUP @ 36.4 weeks gestation, IOL for worsening CHTN in Patient reports: movement normal, contractions Objective - Vital Signs Vital Signs: Vital Signs - 12hr 03/16/21 03/16/21 03/16/21 04:44 04:49 04:51 Temperature Pulse Rate 104 H 72 75 Respiratory Rate Blood Pressure 140/92 O2 Sat by Pulse 94 99 Oximetry O2 Sat by Pulse Oximetry [ Bilateral Throughout] 03/16/21 03/16/21 03/16/21 04:54 04:57 04:59 Temperature Pulse Rate 88 73 Respiratory 26 H Rate Blood Pressure O2 Sat by Pulse 99 98 Oximetry O2 Sat by Pulse Oximetry [ Bilateral Throughout] 03/16/21 03/16/21 03/16/21 05:04 05:06 05:09 Temperature Pulse Rate 79 83 81 Respiratory Rate Blood Pressure O2 Sat by Pulse 97 94 94 Oximetry O2 Sat by Pulse Oximetry [ Bilateral Throughout] 03/16/21 03/16/21 03/16/21 05:13 05:14 05:19 Temperature Pulse Rate 89 93 H 95 H Respiratory Rate Blood Pressure O2 Sat by Pulse 94 94 91 Oximetry O2 Sat by Pulse Oximetry [ Bilateral Throughout] 03/16/21 03/16/21 03/16/21 05:20 05:24 05:29 Temperature Pulse Rate 93 H 91 H 91 H Respiratory Rate Blood Pressure 131/57 O2 Sat by Pulse 91 92 Oximetry O2 Sat by Pulse Oximetry [ Bilateral Throughout] 03/16/21 03/16/21 03/16/21 05:34 05:39 05:44 Temperature Pulse Rate 92 H 92 H 91 H Respiratory Rate Blood Pressure O2 Sat by Pulse 92 93 93 Oximetry O2 Sat by Pulse Oximetry [ Bilateral Throughout] 03/16/21 03/16/21 03/16/21 05:49 05:51 05:54 Temperature Pulse Rate 90 96 H 94 H Respiratory Rate Blood Pressure 125/68 O2 Sat by Pulse 93 95 Oximetry O2 Sat by Pulse Oximetry [ Bilateral Throughout] 03/16/21 03/16/21 03/16/21 05:56 05:57 05:59 Temperature Pulse Rate 92 H 92 H Respiratory 18 Rate Blood Pressure O2 Sat by Pulse 94 95 Oximetry O2 Sat by Pulse Oximetry [ Bilateral Throughout] 03/16/21 03/16/21 03/16/21 06:02 06:04 06:07 Temperature Pulse Rate 93 H 93 H 93 H Respiratory Rate Blood Pressure O2 Sat by Pulse 94 93 94 Oximetry O2 Sat by Pulse Oximetry [ Bilateral Throughout] 03/16/21 03/16/21 03/16/21 06:09 06:14 06:15 Temperature Pulse Rate 95 H 94 H 94 H Respiratory Rate Blood Pressure O2 Sat by Pulse 94 95 94 Oximetry O2 Sat by Pulse Oximetry [ Bilateral Throughout] 03/16/21 03/16/21 03/16/21 06:19 06:21 06:24 Temperature Pulse Rate 93 H 96 H 94 H Respiratory Rate Blood Pressure 121/69 O2 Sat by Pulse 95 93 95 Oximetry O2 Sat by Pulse Oximetry [ Bilateral Throughout] 03/16/21 03/16/21 03/16/21 06:27 06:29 06:32 Temperature Pulse Rate 94 H 98 H 99 H Respiratory Rate Blood Pressure O2 Sat by Pulse 94 97 93 Oximetry O2 Sat by Pulse Oximetry [ Bilateral Throughout] 03/16/21 03/16/21 03/16/21 06:34 06:37 06:39 Temperature Pulse Rate 97 H 95 H 96 H Respiratory Rate Blood Pressure O2 Sat by Pulse 97 94 98 Oximetry O2 Sat by Pulse Oximetry [ Bilateral Throughout] 03/16/21 03/16/21 03/16/21 06:44 06:46 06:49 Temperature Pulse Rate 86 91 H 90 Respiratory Rate Blood Pressure O2 Sat by Pulse 95 94 94 Oximetry O2 Sat by Pulse Oximetry [ Bilateral Throughout] 03/16/21 03/16/21 03/16/21 06:52 06:54 06:59 Temperature Pulse Rate 93 H 91 H 95 H Respiratory Rate Blood Pressure 128/75 O2 Sat by Pulse 93 93 96 Oximetry O2 Sat by Pulse Oximetry [ Bilateral Throughout] 03/16/21 03/16/21 03/16/21 07:04 07:09 07:14 Temperature Pulse Rate 94 H 93 H 92 H Respiratory Rate Blood Pressure O2 Sat by Pulse 96 97 97 Oximetry O2 Sat by Pulse Oximetry [ Bilateral Throughout] 03/16/21 03/16/21 03/16/21 07:19 07:20 07:24 Temperature Pulse Rate 92 H 91 H 93 H Respiratory Rate Blood Pressure 132/73 O2 Sat by Pulse 96 98 Oximetry O2 Sat by Pulse Oximetry [ Bilateral Throughout] 03/16/21 03/16/21 03/16/21 07:29 07:34 07:38 Temperature Pulse Rate 93 H 95 H 102 H Respiratory Rate Blood Pressure O2 Sat by Pulse 97 96 94 Oximetry O2 Sat by Pulse Oximetry [ Bilateral Throughout] 03/16/21 03/16/21 03/16/21 07:39 07:44 07:49 Temperature Pulse Rate 103 H 80 83 Respiratory Rate Blood Pressure O2 Sat by Pulse 99 98 99 Oximetry O2 Sat by Pulse Oximetry [ Bilateral Throughout] 03/16/21 03/16/21 03/16/21 07:50 07:51 07:53 Temperature 98.3 F Pulse Rate 80 83 Respiratory Rate Blood Pressure 159/92 O2 Sat by Pulse 93 Oximetry O2 Sat by Pulse Oximetry [ Bilateral Throughout] 03/16/21 03/16/21 03/16/21 07:54 07:59 08:00 Temperature Pulse Rate 79 70 Respiratory Rate Blood Pressure 149/69 O2 Sat by Pulse 94 97 Oximetry O2 Sat by Pulse 100 Oximetry [ Bilateral Throughout] 03/16/21 03/16/21 03/16/21 08:04 08:07 08:09 Temperature Pulse Rate 83 65 73 Respiratory Rate Blood Pressure 136/80 O2 Sat by Pulse 95 96 Oximetry O2 Sat by Pulse Oximetry [ Bilateral Throughout] 03/16/21 03/16/21 03/16/21 08:14 08:17 08:19 Temperature Pulse Rate 72 76 69 Respiratory Rate Blood Pressure O2 Sat by Pulse 97 93 94 Oximetry O2 Sat by Pulse Oximetry [ Bilateral Throughout] 03/16/21 03/16/21 03/16/21 08:22 08:24 08:25 Temperature Pulse Rate 67 68 70 Respiratory Rate Blood Pressure 138/95 O2 Sat by Pulse 95 94 Oximetry O2 Sat by Pulse Oximetry [ Bilateral Throughout] 03/16/21 03/16/21 03/16/21 08:29 08:34 08:39 Temperature Pulse Rate 65 71 65 Respiratory Rate Blood Pressure O2 Sat by Pulse 96 96 98 Oximetry O2 Sat by Pulse Oximetry [ Bilateral Throughout] 03/16/21 03/16/21 03/16/21 08:44 08:45 08:49 Temperature Pulse Rate 68 68 71 Respiratory Rate Blood Pressure O2 Sat by Pulse 95 94 96 Oximetry O2 Sat by Pulse Oximetry [ Bilateral Throughout] 03/16/21 03/16/21 03/16/21 08:50 08:54 08:59 Temperature Pulse Rate 88 72 65 Respiratory Rate Blood Pressure 122/84 O2 Sat by Pulse 95 95 Oximetry O2 Sat by Pulse Oximetry [ Bilateral Throughout] 03/16/21 03/16/21 03/16/21 09:04 09:09 09:14 Temperature Pulse Rate 67 71 68 Respiratory Rate Blood Pressure O2 Sat by Pulse 95 97 97 Oximetry O2 Sat by Pulse Oximetry [ Bilateral Throughout] 03/16/21 03/16/21 03/16/21 09:19 09:21 09:24 Temperature Pulse Rate 74 64 76 Respiratory Rate Blood Pressure 128/69 O2 Sat by Pulse 97 96 Oximetry O2 Sat by Pulse Oximetry [ Bilateral Throughout] 03/16/21 03/16/21 03/16/21 09:29 09:30 09:34 Temperature Pulse Rate 64 65 65 Respiratory Rate Blood Pressure O2 Sat by Pulse 96 94 96 Oximetry O2 Sat by Pulse Oximetry [ Bilateral Throughout] 03/16/21 03/16/21 03/16/21 09:39 09:44 09:45 Temperature Pulse Rate 65 65 60 Respiratory Rate Blood Pressure O2 Sat by Pulse 95 96 94 Oximetry O2 Sat by Pulse Oximetry [ Bilateral Throughout] 03/16/21 03/16/21 03/16/21 09:49 09:51 09:52 Temperature Pulse Rate 64 71 61 Respiratory Rate Blood Pressure 126/75 O2 Sat by Pulse 96 92 Oximetry O2 Sat by Pulse Oximetry [ Bilateral Throughout] 03/16/21 03/16/21 03/16/21 09:54 09:59 10:04 Temperature Pulse Rate 62 74 71 Respiratory Rate Blood Pressure O2 Sat by Pulse 98 98 98 Oximetry O2 Sat by Pulse Oximetry [ Bilateral Throughout] 03/16/21 03/16/21 03/16/21 10:09 10:14 10:19 Temperature Pulse Rate 64 57 L 63 Respiratory Rate Blood Pressure O2 Sat by Pulse 97 97 97 Oximetry O2 Sat by Pulse Oximetry [ Bilateral Throughout] 03/16/21 03/16/21 03/16/21 10:20 10:24 10:29 Temperature Pulse Rate 63 57 L 68 Respiratory Rate Blood Pressure 133/74 O2 Sat by Pulse 94 95 96 Oximetry O2 Sat by Pulse Oximetry [ Bilateral Throughout] 03/16/21 03/16/21 03/16/21 10:34 10:39 10:44 Temperature Pulse Rate 63 60 61 Respiratory Rate Blood Pressure O2 Sat by Pulse 96 94 96 Oximetry O2 Sat by Pulse Oximetry [ Bilateral Throughout] 03/16/21 03/16/21 03/16/21 10:46 10:49 10:50 Temperature 98.5 F Pulse Rate 61 68 Respiratory Rate Blood Pressure O2 Sat by Pulse 95 93 Oximetry O2 Sat by Pulse Oximetry [ Bilateral Throughout] 03/16/21 03/16/21 03/16/21 10:51 10:54 10:59 Temperature Pulse Rate 62 59 L 59 L Respiratory Rate Blood Pressure 125/72 O2 Sat by Pulse 98 97 Oximetry O2 Sat by Pulse Oximetry [ Bilateral Throughout] 03/16/21 03/16/21 03/16/21 11:04 11:09 11:14 Temperature Pulse Rate 58 L 59 L 60 Respiratory Rate Blood Pressure O2 Sat by Pulse 98 97 97 Oximetry O2 Sat by Pulse Oximetry [ Bilateral Throughout] 03/16/21 03/16/21 03/16/21 11:19 11:20 11:24 Temperature Pulse Rate 59 L 58 L 57 L Respiratory Rate Blood Pressure 134/83 O2 Sat by Pulse 98 97 Oximetry O2 Sat by Pulse Oximetry [ Bilateral Throughout] 03/16/21 03/16/21 03/16/21 11:29 11:34 11:39 Temperature Pulse Rate 63 59 L 59 L Respiratory Rate Blood Pressure O2 Sat by Pulse 97 97 97 Oximetry O2 Sat by Pulse Oximetry [ Bilateral Throughout] 03/16/21 03/16/21 03/16/21 11:44 11:49 11:51 Temperature Pulse Rate 61 62 58 L Respiratory Rate Blood Pressure 127/82 O2 Sat by Pulse 97 98 Oximetry O2 Sat by Pulse Oximetry [ Bilateral Throughout] 03/16/21 03/16/21 03/16/21 11:54 11:59 12:00 Temperature 98.3 F Pulse Rate 64 56 L Respiratory Rate Blood Pressure O2 Sat by Pulse 97 97 Oximetry O2 Sat by Pulse Oximetry [ Bilateral Throughout] 03/16/21 03/16/21 03/16/21 12:04 12:09 12:14 Temperature Pulse Rate 69 63 58 L Respiratory Rate Blood Pressure O2 Sat by Pulse 99 96 97 Oximetry O2 Sat by Pulse Oximetry [ Bilateral Throughout] 03/16/21 03/16/21 03/16/21 12:19 12:21 12:24 Temperature Pulse Rate 73 68 55 L Respiratory Rate Blood Pressure 133/72 O2 Sat by Pulse 97 97 Oximetry O2 Sat by Pulse Oximetry [ Bilateral Throughout] 03/16/21 03/16/21 03/16/21 12:29 12:34 12:39 Temperature Pulse Rate 60 61 56 L Respiratory Rate Blood Pressure O2 Sat by Pulse 96 95 95 Oximetry O2 Sat by Pulse Oximetry [ Bilateral Throughout] 03/16/21 03/16/21 03/16/21 12:44 12:48 12:49 Temperature Pulse Rate 59 L 57 L 65 Respiratory Rate Blood Pressure O2 Sat by Pulse 95 94 98 Oximetry O2 Sat by Pulse Oximetry [ Bilateral Throughout] 03/16/21 03/16/21 03/16/21 12:51 12:54 12:59 Temperature Pulse Rate 54 L 57 L 52 L Respiratory Rate Blood Pressure 129/72 O2 Sat by Pulse 97 98 Oximetry O2 Sat by Pulse Oximetry [ Bilateral Throughout] 03/16/21 03/16/21 03/16/21 13:04 13:09 13:14 Temperature Pulse Rate 50 L 54 L 56 L Respiratory Rate Blood Pressure O2 Sat by Pulse 98 97 97 Oximetry O2 Sat by Pulse Oximetry [ Bilateral Throughout] 03/16/21 03/16/21 03/16/21 13:19 13:21 13:24 Temperature Pulse Rate 57 L 56 L 54 L Respiratory Rate Blood Pressure 148/94 O2 Sat by Pulse 97 95 Oximetry O2 Sat by Pulse Oximetry [ Bilateral Throughout] 03/16/21 03/16/21 03/16/21 13:29 13:33 13:34 Temperature 98.4 F Pulse Rate 57 L 58 L Respiratory Rate Blood Pressure O2 Sat by Pulse 97 98 Oximetry O2 Sat by Pulse Oximetry [ Bilateral Throughout] 03/16/21 03/16/21 03/16/21 13:39 13:44 13:45 Temperature Pulse Rate 57 L 62 60 Respiratory Rate Blood Pressure O2 Sat by Pulse 96 95 94 Oximetry O2 Sat by Pulse Oximetry [ Bilateral Throughout] 03/16/21 03/16/21 03/16/21 13:49 13:50 13:54 Temperature Pulse Rate 63 81 58 L Respiratory Rate Blood Pressure 131/71 O2 Sat by Pulse 96 93 97 Oximetry O2 Sat by Pulse Oximetry [ Bilateral Throughout] 03/16/21 03/16/21 03/16/21 13:59 14:04 14:09 Temperature Pulse Rate 59 L 60 56 L Respiratory Rate Blood Pressure O2 Sat by Pulse 97 97 98 Oximetry O2 Sat by Pulse Oximetry [ Bilateral Throughout] 03/16/21 03/16/21 03/16/21 14:14 14:18 14:19 Temperature Pulse Rate 69 86 70 Respiratory Rate Blood Pressure O2 Sat by Pulse 97 82 L 98 Oximetry O2 Sat by Pulse Oximetry [ Bilateral Throughout] 03/16/21 03/16/21 03/16/21 14:24 14:29 14:34 Temperature Pulse Rate 78 59 L 61 Respiratory Rate Blood Pressure O2 Sat by Pulse 99 97 98 Oximetry O2 Sat by Pulse Oximetry [ Bilateral Throughout] 03/16/21 03/16/21 03/16/21 14:39 14:44 14:49 Temperature Pulse Rate 60 56 L 59 L Respiratory Rate Blood Pressure O2 Sat by Pulse 99 98 98 Oximetry O2 Sat by Pulse Oximetry [ Bilateral Throughout] 03/16/21 03/16/21 03/16/21 14:50 14:54 14:59 Temperature Pulse Rate 56 L 57 L 68 Respiratory Rate Blood Pressure 132/85 O2 Sat by Pulse 98 96 Oximetry O2 Sat by Pulse Oximetry [ Bilateral Throughout] 03/16/21 03/16/21 03/16/21 15:00 15:04 15:09 Temperature Pulse Rate 61 57 L 57 L Respiratory Rate Blood Pressure O2 Sat by Pulse 94 98 98 Oximetry O2 Sat by Pulse Oximetry [ Bilateral Throughout] 03/16/21 03/16/21 03/16/21 15:14 15:19 15:21 Temperature Pulse Rate 57 L 63 54 L Respiratory Rate Blood Pressure 140/87 O2 Sat by Pulse 98 97 Oximetry O2 Sat by Pulse Oximetry [ Bilateral Throughout] 03/16/21 03/16/21 03/16/21 15:24 15:29 15:34 Temperature Pulse Rate 56 L 53 L 59 L Respiratory Rate Blood Pressure O2 Sat by Pulse 98 99 98 Oximetry O2 Sat by Pulse Oximetry [ Bilateral Throughout] 03/16/21 03/16/21 03/16/21 15:39 15:43 15:44 Temperature 98.1 F Pulse Rate 59 L 55 L Respiratory Rate Blood Pressure O2 Sat by Pulse 99 99 Oximetry O2 Sat by Pulse Oximetry [ Bilateral Throughout] 03/16/21 03/16/21 03/16/21 15:49 15:51 15:54 Temperature Pulse Rate 56 L 57 L 56 L Respiratory Rate Blood Pressure 135/88 O2 Sat by Pulse 98 97 Oximetry O2 Sat by Pulse Oximetry [ Bilateral Throughout] 03/16/21 03/16/21 03/16/21 15:59 16:04 16:09 Temperature Pulse Rate 62 61 60 Respiratory Rate Blood Pressure O2 Sat by Pulse 98 98 97 Oximetry O2 Sat by Pulse Oximetry [ Bilateral Throughout] 03/16/21 03/16/21 03/16/21 16:14 16:19 16:22 Temperature Pulse Rate 60 60 73 Respiratory Rate Blood Pressure 115/75 O2 Sat by Pulse 97 96 Oximetry O2 Sat by Pulse Oximetry [ Bilateral Throughout] 03/16/21 03/16/21 03/16/21 16:24 16:29 16:34 Temperature Pulse Rate 55 L 62 58 L Respiratory Rate Blood Pressure O2 Sat by Pulse 98 97 97 Oximetry O2 Sat by Pulse Oximetry [ Bilateral Throughout] 03/16/21 16:39 Temperature Pulse Rate 55 L Respiratory Rate Blood Pressure O2 Sat by Pulse 98 Oximetry O2 Sat by Pulse Oximetry [ Bilateral Throughout] - Exam Narrative Exam: Pt denies BURT, blurred vision, spots before her eyes, chest pain, shortness of breath, and upper abdominal pain. Discussed plan with patient. Her blood pressures have been mostly 120-130's/80's with a few that have been 140's/80's. Will allow her to eat dinner and then will insert Cervidil at 1930. Pt verbalized understanding. Breasts: deferred Cardiovascular: Regular rate Lungs: Normal air movement Abdomen: Present: normal appearance, soft Vulva: both: normal Uterus: Present: normal FHR: category 1 Uterine Contraction Monitor Mode: External Cervical Dilatation: 1 Cervical Effacement Percentage: 50 station: -3 Uterine Contraction Pattern: Regular Uterine Tone Measurement Phase: Resting Uterine Contraction Intensity: Moderate - Labs Labs: Abnormal Labs 03/13/21 03/13/21 10:07 13:56 Creatinine 0.5 L Ur Total Protein 24 Hr 216.00 H Urine Total Protein 18 H Laboratory Results - last 24 hr 03/15/21 03/15/21 03/15/21 18:30 18:46 18:46 WBC 7.7 RBC 3.93 Hgb 11.6 Hct 35.2 MCV 90 MCH 30 MCHC 33 RDW 13.8 Plt Count 174 Syphilis IgG Antibody Nonreactive Blood Type O POSITIVE Antibody Screen Negative
[2021-03-16] MEDS ORDERED: DINOPROSTONE 10 MG VAG SUPP VG ONE (19:30)
[2021-03-16] MEDS ORDERED: diphenhydrAMINE 50 MG CAP PO ONE (23:00)
[2021-03-17] MEDS: fentaNYL 100 MCG/2 ML INJ IV PRN ×4 (00:50→13:53)
[2021-03-17] MEDS: LACTATED RINGERS 1,000 ML IV SCH ×4 (02:15→23:23)
--- NOTE | 2021-03-17 09:53 | Progress Note ---
Assessment and Plan - Patient Problems (1) Gestational hypertension without significant proteinuria Onset Date: ~03/15/21 Current Visit: Yes Status: Acute Qualifiers: Trimester: third trimester Qualified Code(s): O13.3 - Gestational [-induced] hypertension without significant proteinuria, third trimester Plan to address problem: Pt sleeping SO states pt did not sleep well over night. No c/o voiced @ time of rounds. BP 150-130/80-70 Cervidil to be removed this AM Pt will have diet and AM care then resume IOL. SVE 3,70,-2 per RN when Cervidil was removed. Will start pitocin after breakfast. Subjective - Subjective Date of service: 03/17/21 (pt sleeping No c/o voiced) Principal diagnosis: IUP @ 36.5 weeks gestation, IOL for worsening CHTN in Patient reports: movement normal, contractions Objective - Vital Signs Vital Signs: Vital Signs - 12hr 03/16/21 03/16/21 03/16/21 21:48 21:53 21:58 Temperature Pulse Rate 61 64 80 Respiratory Rate Blood Pressure O2 Sat by Pulse 99 99 100 Oximetry O2 Sat by Pulse Oximetry [ Bilateral Throughout] 03/16/21 03/16/21 03/16/21 22:03 22:08 22:13 Temperature Pulse Rate 67 69 66 Respiratory Rate Blood Pressure O2 Sat by Pulse 99 100 99 Oximetry O2 Sat by Pulse Oximetry [ Bilateral Throughout] 03/16/21 03/16/21 03/16/21 22:16 22:18 22:23 Temperature Pulse Rate 65 62 66 Respiratory Rate Blood Pressure 141/75 O2 Sat by Pulse 99 98 Oximetry O2 Sat by Pulse Oximetry [ Bilateral Throughout] 03/16/21 03/16/21 03/16/21 22:28 22:33 22:38 Temperature Pulse Rate 67 65 69 Respiratory Rate Blood Pressure O2 Sat by Pulse 98 98 97 Oximetry O2 Sat by Pulse Oximetry [ Bilateral Throughout] 03/16/21 03/16/21 03/16/21 22:43 22:46 22:48 Temperature Pulse Rate 68 68 66 Respiratory Rate Blood Pressure 130/70 O2 Sat by Pulse 97 97 Oximetry O2 Sat by Pulse Oximetry [ Bilateral Throughout] 03/16/21 03/16/21 03/16/21 22:53 22:58 23:03 Temperature 98.0 F Pulse Rate 66 69 73 Respiratory Rate Blood Pressure O2 Sat by Pulse 97 97 99 Oximetry O2 Sat by Pulse Oximetry [ Bilateral Throughout] 03/16/21 03/16/21 03/16/21 23:08 23:13 23:16 Temperature Pulse Rate 57 L 55 L 57 L Respiratory Rate Blood Pressure 133/78 O2 Sat by Pulse 98 98 Oximetry O2 Sat by Pulse Oximetry [ Bilateral Throughout] 03/16/21 03/16/21 03/16/21 23:18 23:23 23:28 Temperature Pulse Rate 55 L 58 L 65 Respiratory Rate Blood Pressure O2 Sat by Pulse 98 98 98 Oximetry O2 Sat by Pulse Oximetry [ Bilateral Throughout] 03/16/21 03/16/21 03/16/21 23:33 23:38 23:43 Temperature Pulse Rate 61 60 60 Respiratory Rate Blood Pressure O2 Sat by Pulse 98 98 99 Oximetry O2 Sat by Pulse Oximetry [ Bilateral Throughout] 03/16/21 03/16/21 03/16/21 23:47 23:48 23:53 Temperature Pulse Rate 74 60 59 L Respiratory Rate Blood Pressure 146/87 O2 Sat by Pulse 98 98 Oximetry O2 Sat by Pulse Oximetry [ Bilateral Throughout] 03/16/21 03/17/21 03/17/21 23:58 00:03 00:08 Temperature Pulse Rate 64 56 L 72 Respiratory Rate Blood Pressure O2 Sat by Pulse 97 98 99 Oximetry O2 Sat by Pulse Oximetry [ Bilateral Throughout] 03/17/21 03/17/21 03/17/21 00:13 00:16 00:18 Temperature Pulse Rate 80 58 L 59 L Respiratory Rate Blood Pressure 139/85 O2 Sat by Pulse 99 100 Oximetry O2 Sat by Pulse Oximetry [ Bilateral Throughout] 03/17/21 03/17/21 03/17/21 00:23 00:28 00:33 Temperature Pulse Rate 67 60 60 Respiratory Rate Blood Pressure O2 Sat by Pulse 99 99 100 Oximetry O2 Sat by Pulse Oximetry [ Bilateral Throughout] 03/17/21 03/17/21 03/17/21 00:38 00:43 00:48 Temperature Pulse Rate 60 63 57 L Respiratory Rate Blood Pressure 127/73 O2 Sat by Pulse 100 100 99 Oximetry O2 Sat by Pulse Oximetry [ Bilateral Throughout] 03/17/21 03/17/21 03/17/21 00:53 00:58 01:03 Temperature Pulse Rate 62 71 70 Respiratory Rate Blood Pressure O2 Sat by Pulse 100 97 97 Oximetry O2 Sat by Pulse Oximetry [ Bilateral Throughout] 03/17/21 03/17/21 03/17/21 01:08 01:13 01:16 Temperature Pulse Rate 67 71 69 Respiratory Rate Blood Pressure 126/67 O2 Sat by Pulse 97 97 Oximetry O2 Sat by Pulse Oximetry [ Bilateral Throughout] 03/17/21 03/17/21 03/17/21 01:18 01:23 01:28 Temperature Pulse Rate 70 68 67 Respiratory Rate Blood Pressure O2 Sat by Pulse 97 97 96 Oximetry O2 Sat by Pulse Oximetry [ Bilateral Throughout] 03/17/21 03/17/21 03/17/21 01:33 01:38 01:43 Temperature Pulse Rate 64 62 64 Respiratory Rate Blood Pressure O2 Sat by Pulse 97 98 98 Oximetry O2 Sat by Pulse Oximetry [ Bilateral Throughout] 03/17/21 03/17/21 03/17/21 01:46 01:48 01:50 Temperature Pulse Rate 58 L 60 Respiratory 18 Rate Blood Pressure 125/68 O2 Sat by Pulse 97 Oximetry O2 Sat by Pulse Oximetry [ Bilateral Throughout] 03/17/21 03/17/21 03/17/21 01:53 01:58 02:03 Temperature Pulse Rate 75 60 68 Respiratory Rate Blood Pressure O2 Sat by Pulse 97 98 97 Oximetry O2 Sat by Pulse Oximetry [ Bilateral Throughout] 03/17/21 03/17/21 03/17/21 02:08 02:13 02:16 Temperature Pulse Rate 61 63 60 Respiratory Rate Blood Pressure 138/74 O2 Sat by Pulse 98 100 Oximetry O2 Sat by Pulse Oximetry [ Bilateral Throughout] 03/17/21 03/17/21 03/17/21 02:18 02:23 02:28 Temperature Pulse Rate 72 57 L 61 Respiratory Rate Blood Pressure O2 Sat by Pulse 100 99 98 Oximetry O2 Sat by Pulse Oximetry [ Bilateral Throughout] 03/17/21 03/17/21 03/17/21 02:33 02:38 02:43 Temperature Pulse Rate 59 L 56 L 60 Respiratory Rate Blood Pressure O2 Sat by Pulse 99 99 99 Oximetry O2 Sat by Pulse Oximetry [ Bilateral Throughout] 03/17/21 03/17/21 03/17/21 02:47 02:48 02:53 Temperature Pulse Rate 59 L 68 65 Respiratory Rate Blood Pressure 135/75 O2 Sat by Pulse 100 100 Oximetry O2 Sat by Pulse Oximetry [ Bilateral Throughout] 03/17/21 03/17/21 03/17/21 02:58 03:03 03:08 Temperature Pulse Rate 58 L 62 63 Respiratory Rate Blood Pressure O2 Sat by Pulse 99 100 100 Oximetry O2 Sat by Pulse Oximetry [ Bilateral Throughout] 03/17/21 03/17/21 03/17/21 03:13 03:18 03:23 Temperature Pulse Rate 64 64 69 Respiratory Rate Blood Pressure 137/76 O2 Sat by Pulse 100 100 100 Oximetry O2 Sat by Pulse Oximetry [ Bilateral Throughout] 03/17/21 03/17/21 03/17/21 03:28 03:33 03:38 Temperature Pulse Rate 58 L 65 67 Respiratory Rate Blood Pressure O2 Sat by Pulse 100 100 100 Oximetry O2 Sat by Pulse Oximetry [ Bilateral Throughout] 03/17/21 03/17/21 03/17/21 03:41 03:43 03:46 Temperature Pulse Rate 64 58 L Respiratory 18 Rate Blood Pressure 141/83 O2 Sat by Pulse 97 Oximetry O2 Sat by Pulse Oximetry [ Bilateral Throughout] 03/17/21 03/17/21 03/17/21 03:48 03:53 03:58 Temperature Pulse Rate 66 63 70 Respiratory Rate Blood Pressure O2 Sat by Pulse 99 96 96 Oximetry O2 Sat by Pulse Oximetry [ Bilateral Throughout] 03/17/21 03/17/21 03/17/21 04:03 04:08 04:18 Temperature Pulse Rate 67 65 82 Respiratory Rate Blood Pressure O2 Sat by Pulse 98 99 99 Oximetry O2 Sat by Pulse Oximetry [ Bilateral Throughout] 03/17/21 03/17/21 03/17/21 04:23 04:28 04:33 Temperature Pulse Rate 58 L 64 67 Respiratory Rate Blood Pressure O2 Sat by Pulse 100 99 99 Oximetry O2 Sat by Pulse Oximetry [ Bilateral Throughout] 03/17/21 03/17/21 03/17/21 04:38 04:41 04:43 Temperature Pulse Rate 63 68 Respiratory 18 Rate Blood Pressure O2 Sat by Pulse 98 99 Oximetry O2 Sat by Pulse Oximetry [ Bilateral Throughout] 03/17/21 03/17/21 03/17/21 04:46 04:48 04:53 Temperature Pulse Rate 68 71 75 Respiratory Rate Blood Pressure 147/70 O2 Sat by Pulse 97 97 Oximetry O2 Sat by Pulse Oximetry [ Bilateral Throughout] 03/17/21 03/17/21 03/17/21 04:58 04:59 05:03 Temperature Pulse Rate 94 H 79 93 H Respiratory Rate Blood Pressure O2 Sat by Pulse 96 94 97 Oximetry O2 Sat by Pulse Oximetry [ Bilateral Throughout] 03/17/21 03/17/21 03/17/21 05:08 05:13 05:17 Temperature Pulse Rate 80 75 76 Respiratory Rate Blood Pressure 134/72 O2 Sat by Pulse 97 97 Oximetry O2 Sat by Pulse Oximetry [ Bilateral Throughout] 03/17/21 03/17/21 03/17/21 05:18 05:23 05:28 Temperature Pulse Rate 77 77 82 Respiratory Rate Blood Pressure O2 Sat by Pulse 98 97 96 Oximetry O2 Sat by Pulse Oximetry [ Bilateral Throughout] 03/17/21 03/17/21 03/17/21 05:33 05:38 05:43 Temperature Pulse Rate 75 76 74 Respiratory Rate Blood Pressure O2 Sat by Pulse 96 96 96 Oximetry O2 Sat by Pulse Oximetry [ Bilateral Throughout] 03/17/21 03/17/21 03/17/21 05:46 05:48 05:53 Temperature Pulse Rate 76 72 73 Respiratory Rate Blood Pressure 147/63 O2 Sat by Pulse 97 97 Oximetry O2 Sat by Pulse Oximetry [ Bilateral Throughout] 03/17/21 03/17/21 03/17/21 05:58 06:03 06:08 Temperature Pulse Rate 74 72 65 Respiratory Rate Blood Pressure O2 Sat by Pulse 97 99 98 Oximetry O2 Sat by Pulse Oximetry [ Bilateral Throughout] 03/17/21 03/17/21 03/17/21 06:16 06:21 06:26 Temperature Pulse Rate 77 80 71 Respiratory Rate Blood Pressure O2 Sat by Pulse 100 99 98 Oximetry O2 Sat by Pulse Oximetry [ Bilateral Throughout] 03/17/21 03/17/21 03/17/21 06:30 06:31 06:34 Temperature 98.3 F Pulse Rate 72 67 Respiratory Rate Blood Pressure 129/69 O2 Sat by Pulse 98 Oximetry O2 Sat by Pulse Oximetry [ Bilateral Throughout] 03/17/21 03/17/21 03/17/21 06:36 06:41 06:46 Temperature Pulse Rate 68 67 60 Respiratory Rate Blood Pressure 138/75 O2 Sat by Pulse 97 96 96 Oximetry O2 Sat by Pulse Oximetry [ Bilateral Throughout] 03/17/21 03/17/21 03/17/21 06:51 06:56 07:01 Temperature Pulse Rate 65 66 66 Respiratory Rate Blood Pressure O2 Sat by Pulse 97 97 97 Oximetry O2 Sat by Pulse Oximetry [ Bilateral Throughout] 03/17/21 03/17/21 03/17/21 07:06 07:11 07:13 Temperature 98.7 F Pulse Rate 69 68 Respiratory 18 Rate Blood Pressure O2 Sat by Pulse 98 97 Oximetry O2 Sat by Pulse 98 Oximetry [ Bilateral Throughout] 03/17/21 03/17/21 03/17/21 07:16 07:18 07:21 Temperature Pulse Rate 61 55 L 66 Respiratory Rate Blood Pressure 159/83 O2 Sat by Pulse 99 99 Oximetry O2 Sat by Pulse Oximetry [ Bilateral Throughout] 03/17/21 03/17/21 03/17/21 07:26 07:31 07:36 Temperature Pulse Rate 60 58 L 55 L Respiratory Rate Blood Pressure O2 Sat by Pulse 100 100 98 Oximetry O2 Sat by Pulse Oximetry [ Bilateral Throughout] 03/17/21 03/17/21 03/17/21 07:41 07:46 07:47 Temperature Pulse Rate 67 57 L 54 L Respiratory Rate Blood Pressure 155/86 O2 Sat by Pulse 96 99 Oximetry O2 Sat by Pulse Oximetry [ Bilateral Throughout] 03/17/21 03/17/21 03/17/21 07:51 07:56 08:01 Temperature Pulse Rate 56 L 55 L 59 L Respiratory Rate Blood Pressure O2 Sat by Pulse 99 98 100 Oximetry O2 Sat by Pulse Oximetry [ Bilateral Throughout] 03/17/21 03/17/21 03/17/21 08:06 08:11 08:13 Temperature Pulse Rate 59 L 56 L 65 Respiratory Rate Blood Pressure O2 Sat by Pulse 100 97 80 L Oximetry O2 Sat by Pulse Oximetry [ Bilateral Throughout] 03/17/21 03/17/21 03/17/21 08:18 08:19 08:24 Temperature Pulse Rate 61 77 60 Respiratory Rate Blood Pressure O2 Sat by Pulse 69 L 90 97 Oximetry O2 Sat by Pulse Oximetry [ Bilateral Throughout] 03/17/21 03/17/21 03/17/21 08:29 08:34 08:39 Temperature Pulse Rate 59 L 63 57 L Respiratory Rate Blood Pressure O2 Sat by Pulse 98 99 99 Oximetry O2 Sat by Pulse Oximetry [ Bilateral Throughout] 03/17/21 03/17/21 03/17/21 08:44 08:46 08:49 Temperature Pulse Rate 57 L 55 L 62 Respiratory Rate Blood Pressure 140/83 O2 Sat by Pulse 99 99 Oximetry O2 Sat by Pulse Oximetry [ Bilateral Throughout] 03/17/21 03/17/21 03/17/21 08:52 08:54 08:59 Temperature Pulse Rate 60 57 L 63 Respiratory Rate Blood Pressure O2 Sat by Pulse 93 100 98 Oximetry O2 Sat by Pulse Oximetry [ Bilateral Throughout] 03/17/21 03/17/21 03/17/21 09:00 09:04 09:06 Temperature Pulse Rate 180 H Respiratory Rate Blood Pressure O2 Sat by Pulse 83 L 66 L 68 L Oximetry O2 Sat by Pulse Oximetry [ Bilateral Throughout] 03/17/21 09:11 Temperature Pulse Rate 71 Respiratory Rate Blood Pressure O2 Sat by Pulse 79 L Oximetry O2 Sat by Pulse Oximetry [ Bilateral Throughout] - Exam Breasts: deferred Cardiovascular: Regular rate Lungs: Normal air movement Abdomen: Present: normal appearance, soft. Absent: distention, tenderness Uterus: Present: normal FHR: auscultation normal, category 1 Uterine Contraction Monitor Mode: External Cervical Dilatation: 3 (per RN when cervidil was removed) Cervical Effacement Percentage: 70 station: -2 Uterine Contraction Pattern: Irregular Uterine Tone Measurement Phase: Resting Uterine Contraction Intensity: Mild Extremities: normal Deep Tendon Reflex Grade: Normal +2 - Labs Labs: Abnormal Labs 03/13/21 03/13/21 10:07 13:56 Creatinine 0.5 L Ur Total Protein 24 Hr 216.00 H Urine Total Protein 18 H
[2021-03-17] MEDS: OXYTOCIN DRIP 30 UNITS/500 ML BAG IV SCH (11:00)
--- NOTE | 2021-03-17 13:18 | Progress Note ---
Assessment and Plan - Patient Problems (1) Gestational hypertension without significant proteinuria Onset Date: ~03/15/21 Current Visit: Yes Status: Acute Qualifiers: Trimester: third trimester Qualified Code(s): O13.3 - Gestational [-induced] hypertension without significant proteinuria, third trimester Plan to address problem: Will continue pitocin for now SVE 3,40,-2 Will reassess @ 1700 Dr Singh consulted Subjective - Subjective Date of service: 03/17/21 (pt toleratiog IOL) Principal diagnosis: IUP @ 36.5 weeks gestation, IOL for worsening CHTN in Patient reports: movement normal, contractions Objective - Vital Signs Vital Signs: Vital Signs - 12hr 03/17/21 03/17/21 03/17/21 01:16 01:18 01:23 Temperature Pulse Rate 69 70 68 Respiratory Rate Blood Pressure 126/67 O2 Sat by Pulse 97 97 Oximetry O2 Sat by Pulse Oximetry [ Bilateral Throughout] 03/17/21 03/17/21 03/17/21 01:28 01:33 01:38 Temperature Pulse Rate 67 64 62 Respiratory Rate Blood Pressure O2 Sat by Pulse 96 97 98 Oximetry O2 Sat by Pulse Oximetry [ Bilateral Throughout] 03/17/21 03/17/21 03/17/21 01:43 01:46 01:48 Temperature Pulse Rate 64 58 L 60 Respiratory Rate Blood Pressure 125/68 O2 Sat by Pulse 98 97 Oximetry O2 Sat by Pulse Oximetry [ Bilateral Throughout] 03/17/21 03/17/21 03/17/21 01:50 01:53 01:58 Temperature Pulse Rate 75 60 Respiratory 18 Rate Blood Pressure O2 Sat by Pulse 97 98 Oximetry O2 Sat by Pulse Oximetry [ Bilateral Throughout] 03/17/21 03/17/21 03/17/21 02:03 02:08 02:13 Temperature Pulse Rate 68 61 63 Respiratory Rate Blood Pressure O2 Sat by Pulse 97 98 100 Oximetry O2 Sat by Pulse Oximetry [ Bilateral Throughout] 03/17/21 03/17/21 03/17/21 02:16 02:18 02:23 Temperature Pulse Rate 60 72 57 L Respiratory Rate Blood Pressure 138/74 O2 Sat by Pulse 100 99 Oximetry O2 Sat by Pulse Oximetry [ Bilateral Throughout] 03/17/21 03/17/21 03/17/21 02:28 02:33 02:38 Temperature Pulse Rate 61 59 L 56 L Respiratory Rate Blood Pressure O2 Sat by Pulse 98 99 99 Oximetry O2 Sat by Pulse Oximetry [ Bilateral Throughout] 03/17/21 03/17/21 03/17/21 02:43 02:47 02:48 Temperature Pulse Rate 60 59 L 68 Respiratory Rate Blood Pressure 135/75 O2 Sat by Pulse 99 100 Oximetry O2 Sat by Pulse Oximetry [ Bilateral Throughout] 03/17/21 03/17/21 03/17/21 02:53 02:58 03:03 Temperature Pulse Rate 65 58 L 62 Respiratory Rate Blood Pressure O2 Sat by Pulse 100 99 100 Oximetry O2 Sat by Pulse Oximetry [ Bilateral Throughout] 03/17/21 03/17/21 03/17/21 03:08 03:13 03:18 Temperature Pulse Rate 63 64 64 Respiratory Rate Blood Pressure 137/76 O2 Sat by Pulse 100 100 100 Oximetry O2 Sat by Pulse Oximetry [ Bilateral Throughout] 03/17/21 03/17/21 03/17/21 03:23 03:28 03:33 Temperature Pulse Rate 69 58 L 65 Respiratory Rate Blood Pressure O2 Sat by Pulse 100 100 100 Oximetry O2 Sat by Pulse Oximetry [ Bilateral Throughout] 03/17/21 03/17/21 03/17/21 03:38 03:41 03:43 Temperature Pulse Rate 67 64 Respiratory 18 Rate Blood Pressure O2 Sat by Pulse 100 97 Oximetry O2 Sat by Pulse Oximetry [ Bilateral Throughout] 03/17/21 03/17/21 03/17/21 03:46 03:48 03:53 Temperature Pulse Rate 58 L 66 63 Respiratory Rate Blood Pressure 141/83 O2 Sat by Pulse 99 96 Oximetry O2 Sat by Pulse Oximetry [ Bilateral Throughout] 03/17/21 03/17/21 03/17/21 03:58 04:03 04:08 Temperature Pulse Rate 70 67 65 Respiratory Rate Blood Pressure O2 Sat by Pulse 96 98 99 Oximetry O2 Sat by Pulse Oximetry [ Bilateral Throughout] 03/17/21 03/17/21 03/17/21 04:18 04:23 04:28 Temperature Pulse Rate 82 58 L 64 Respiratory Rate Blood Pressure O2 Sat by Pulse 99 100 99 Oximetry O2 Sat by Pulse Oximetry [ Bilateral Throughout] 03/17/21 03/17/21 03/17/21 04:33 04:38 04:41 Temperature Pulse Rate 67 63 Respiratory 18 Rate Blood Pressure O2 Sat by Pulse 99 98 Oximetry O2 Sat by Pulse Oximetry [ Bilateral Throughout] 03/17/21 03/17/21 03/17/21 04:43 04:46 04:48 Temperature Pulse Rate 68 68 71 Respiratory Rate Blood Pressure 147/70 O2 Sat by Pulse 99 97 Oximetry O2 Sat by Pulse Oximetry [ Bilateral Throughout] 03/17/21 03/17/21 03/17/21 04:53 04:58 04:59 Temperature Pulse Rate 75 94 H 79 Respiratory Rate Blood Pressure O2 Sat by Pulse 97 96 94 Oximetry O2 Sat by Pulse Oximetry [ Bilateral Throughout] 03/17/21 03/17/21 03/17/21 05:03 05:08 05:13 Temperature Pulse Rate 93 H 80 75 Respiratory Rate Blood Pressure O2 Sat by Pulse 97 97 97 Oximetry O2 Sat by Pulse Oximetry [ Bilateral Throughout] 03/17/21 03/17/21 03/17/21 05:17 05:18 05:23 Temperature Pulse Rate 76 77 77 Respiratory Rate Blood Pressure 134/72 O2 Sat by Pulse 98 97 Oximetry O2 Sat by Pulse Oximetry [ Bilateral Throughout] 03/17/21 03/17/21 03/17/21 05:28 05:33 05:38 Temperature Pulse Rate 82 75 76 Respiratory Rate Blood Pressure O2 Sat by Pulse 96 96 96 Oximetry O2 Sat by Pulse Oximetry [ Bilateral Throughout] 03/17/21 03/17/21 03/17/21 05:43 05:46 05:48 Temperature Pulse Rate 74 76 72 Respiratory Rate Blood Pressure 147/63 O2 Sat by Pulse 96 97 Oximetry O2 Sat by Pulse Oximetry [ Bilateral Throughout] 03/17/21 03/17/21 03/17/21 05:53 05:58 06:03 Temperature Pulse Rate 73 74 72 Respiratory Rate Blood Pressure O2 Sat by Pulse 97 97 99 Oximetry O2 Sat by Pulse Oximetry [ Bilateral Throughout] 03/17/21 03/17/21 03/17/21 06:08 06:16 06:21 Temperature Pulse Rate 65 77 80 Respiratory Rate Blood Pressure O2 Sat by Pulse 98 100 99 Oximetry O2 Sat by Pulse Oximetry [ Bilateral Throughout] 03/17/21 03/17/21 03/17/21 06:26 06:30 06:31 Temperature 98.3 F Pulse Rate 71 72 Respiratory Rate Blood Pressure O2 Sat by Pulse 98 98 Oximetry O2 Sat by Pulse Oximetry [ Bilateral Throughout] 03/17/21 03/17/21 03/17/21 06:34 06:36 06:41 Temperature Pulse Rate 67 68 67 Respiratory Rate Blood Pressure 129/69 O2 Sat by Pulse 97 96 Oximetry O2 Sat by Pulse Oximetry [ Bilateral Throughout] 03/17/21 03/17/21 03/17/21 06:46 06:51 06:56 Temperature Pulse Rate 60 65 66 Respiratory Rate Blood Pressure 138/75 O2 Sat by Pulse 96 97 97 Oximetry O2 Sat by Pulse Oximetry [ Bilateral Throughout] 03/17/21 03/17/21 03/17/21 07:01 07:06 07:11 Temperature Pulse Rate 66 69 68 Respiratory Rate Blood Pressure O2 Sat by Pulse 97 98 97 Oximetry O2 Sat by Pulse Oximetry [ Bilateral Throughout] 03/17/21 03/17/21 03/17/21 07:13 07:16 07:18 Temperature 98.7 F Pulse Rate 61 55 L Respiratory 18 Rate Blood Pressure 159/83 O2 Sat by Pulse 99 Oximetry O2 Sat by Pulse 98 Oximetry [ Bilateral Throughout] 03/17/21 03/17/21 03/17/21 07:21 07:26 07:31 Temperature Pulse Rate 66 60 58 L Respiratory Rate Blood Pressure O2 Sat by Pulse 99 100 100 Oximetry O2 Sat by Pulse Oximetry [ Bilateral Throughout] 03/17/21 03/17/21 03/17/21 07:36 07:41 07:46 Temperature Pulse Rate 55 L 67 57 L Respiratory Rate Blood Pressure O2 Sat by Pulse 98 96 99 Oximetry O2 Sat by Pulse Oximetry [ Bilateral Throughout] 03/17/21 03/17/21 03/17/21 07:47 07:51 07:56 Temperature Pulse Rate 54 L 56 L 55 L Respiratory Rate Blood Pressure 155/86 O2 Sat by Pulse 99 98 Oximetry O2 Sat by Pulse Oximetry [ Bilateral Throughout] 03/17/21 03/17/21 03/17/21 08:01 08:06 08:11 Temperature Pulse Rate 59 L 59 L 56 L Respiratory Rate Blood Pressure O2 Sat by Pulse 100 100 97 Oximetry O2 Sat by Pulse Oximetry [ Bilateral Throughout] 03/17/21 03/17/21 03/17/21 08:13 08:18 08:19 Temperature Pulse Rate 65 61 77 Respiratory Rate Blood Pressure O2 Sat by Pulse 80 L 69 L 90 Oximetry O2 Sat by Pulse Oximetry [ Bilateral Throughout] 03/17/21 03/17/21 03/17/21 08:24 08:29 08:34 Temperature Pulse Rate 60 59 L 63 Respiratory Rate Blood Pressure O2 Sat by Pulse 97 98 99 Oximetry O2 Sat by Pulse Oximetry [ Bilateral Throughout] 03/17/21 03/17/21 03/17/21 08:39 08:44 08:46 Temperature Pulse Rate 57 L 57 L 55 L Respiratory Rate Blood Pressure 140/83 O2 Sat by Pulse 99 99 Oximetry O2 Sat by Pulse Oximetry [ Bilateral Throughout] 03/17/21 03/17/21 03/17/21 08:49 08:52 08:54 Temperature Pulse Rate 62 60 57 L Respiratory Rate Blood Pressure O2 Sat by Pulse 99 93 100 Oximetry O2 Sat by Pulse Oximetry [ Bilateral Throughout] 03/17/21 03/17/21 03/17/21 08:59 09:00 09:04 Temperature Pulse Rate 63 180 H Respiratory Rate Blood Pressure O2 Sat by Pulse 98 83 L 66 L Oximetry O2 Sat by Pulse Oximetry [ Bilateral Throughout] 03/17/21 03/17/21 03/17/21 09:06 09:11 09:48 Temperature Pulse Rate 71 67 Respiratory Rate Blood Pressure O2 Sat by Pulse 68 L 79 L 98 Oximetry O2 Sat by Pulse Oximetry [ Bilateral Throughout] 03/17/21 03/17/21 03/17/21 09:50 09:53 09:58 Temperature Pulse Rate 59 L 63 65 Respiratory Rate Blood Pressure 144/84 O2 Sat by Pulse 99 99 Oximetry O2 Sat by Pulse Oximetry [ Bilateral Throughout] 03/17/21 03/17/21 03/17/21 10:03 10:08 10:13 Temperature Pulse Rate 75 77 57 L Respiratory Rate Blood Pressure O2 Sat by Pulse 98 98 99 Oximetry O2 Sat by Pulse Oximetry [ Bilateral Throughout] 03/17/21 03/17/21 03/17/21 10:18 10:19 10:23 Temperature Pulse Rate 59 L 65 80 Respiratory Rate Blood Pressure 159/93 O2 Sat by Pulse 99 98 Oximetry O2 Sat by Pulse Oximetry [ Bilateral Throughout] 03/17/21 03/17/21 03/17/21 10:28 10:33 10:38 Temperature Pulse Rate 70 81 71 Respiratory Rate Blood Pressure O2 Sat by Pulse 100 99 98 Oximetry O2 Sat by Pulse Oximetry [ Bilateral Throughout] 09/03/17/21 03/17/21 10:43 10:48 10:53 Temperature Pulse Rate 61 61 76 Respiratory Rate Blood Pressure O2 Sat by Pulse 99 100 98 Oximetry O2 Sat by Pulse Oximetry [ Bilateral Throughout] 03/17/21 03/17/21 03/17/21 10:58 11:03 11:08 Temperature Pulse Rate 66 67 60 Respiratory Rate Blood Pressure O2 Sat by Pulse 99 97 98 Oximetry O2 Sat by Pulse Oximetry [ Bilateral Throughout] 03/17/21 03/17/21 03/17/21 11:13 11:18 11:23 Temperature Pulse Rate 67 61 66 Respiratory Rate Blood Pressure 145/83 O2 Sat by Pulse 98 98 98 Oximetry O2 Sat by Pulse Oximetry [ Bilateral Throughout] 03/17/21 03/17/21 03/17/21 11:28 11:33 11:38 Temperature Pulse Rate 75 66 67 Respiratory Rate Blood Pressure O2 Sat by Pulse 97 98 98 Oximetry O2 Sat by Pulse Oximetry [ Bilateral Throughout] 03/17/21 03/17/21 03/17/21 11:43 11:48 11:53 Temperature Pulse Rate 74 61 67 Respiratory Rate Blood Pressure O2 Sat by Pulse 98 99 99 Oximetry O2 Sat by Pulse Oximetry [ Bilateral Throughout] 03/17/21 03/17/21 03/17/21 11:58 12:03 12:08 Temperature Pulse Rate 61 61 60 Respiratory Rate Blood Pressure O2 Sat by Pulse 98 99 99 Oximetry O2 Sat by Pulse Oximetry [ Bilateral Throughout] 03/17/21 03/17/21 03/17/21 12:13 12:18 12:23 Temperature Pulse Rate 65 61 68 Respiratory Rate Blood Pressure 139/82 O2 Sat by Pulse 98 99 99 Oximetry O2 Sat by Pulse Oximetry [ Bilateral Throughout] 03/17/21 03/17/21 03/17/21 12:28 12:33 12:38 Temperature Pulse Rate 65 68 66 Respiratory Rate Blood Pressure O2 Sat by Pulse 98 99 98 Oximetry O2 Sat by Pulse Oximetry [ Bilateral Throughout] 03/17/21 03/17/21 03/17/21 12:43 12:48 12:53 Temperature Pulse Rate 63 62 62 Respiratory Rate Blood Pressure O2 Sat by Pulse 98 99 99 Oximetry O2 Sat by Pulse Oximetry [ Bilateral Throughout] 03/17/21 03/17/21 03/17/21 12:58 13:03 13:08 Temperature Pulse Rate 65 68 58 L Respiratory Rate Blood Pressure O2 Sat by Pulse 99 98 99 Oximetry O2 Sat by Pulse Oximetry [ Bilateral Throughout] - Exam Narrative Exam: Pt sleeping easily aroused. Desires d/c today Denies BURT, blurred vision, chest pain. NST reactive. BP 130-115/80-60 P: d/c today with instructions RTO Friday03-19-21 @ 1030 for f/u. Stressed to pt to call with any ocncerns and to monitor FM QD All concerns addressed Will consult with Dr Spear Breasts: deferred Cardiovascular: Regular rate Abdomen: Present: normal appearance, soft. Absent: distention, tenderness Uterus: Present: normal FHR: auscultation normal Uterine Contraction Monitor Mode: External Cervical Dilatation: 3 Cervical Effacement Percentage: 40 station: -2 Uterine Contraction Pattern: Irregular Uterine Tone Measurement Phase: Resting Uterine Contraction Intensity: Moderate Extremities: normal Deep Tendon Reflex Grade: Normal +2 - Labs Labs: Abnormal Labs 03/13/21 03/13/21 10:07 13:56 Creatinine 0.5 L Ur Total Protein 24 Hr 216.00 H Urine Total Protein 18 H
[2021-03-17] MEDS ORDERED: ONDANSETRON 4 MG/2 ML INJ IV PRN (16:59)
[2021-03-17] MEDS ORDERED: NALOXONE 2 MG/2 ML INJ IV PRN (16:59)
[2021-03-17] MEDS ORDERED: NalbUPHINE 10 MG/1 ML INJ IV PRN (16:59)
[2021-03-17] MEDS ORDERED: diphenhydrAMINE 50 MG/ML VIAL IV PRN (16:59)
[2021-03-17] MEDS ORDERED: LACTATED RINGERS 250 ML IV SOLN IV ONE (16:59)
[2021-03-17] MEDS ORDERED: ePHEDrine SULFATE 50 MG/1 ML INJ IV PRN (16:59)
[2021-03-17] MEDS ORDERED: fentaNYL-BUPIV 2 MCG/ML-0.125% 200 MCG/100 ML BAG EPIDURAL SCH (17:00)
--- NOTE | 2021-03-17 17:12 | Progress Note ---
Assessment and Plan - Patient Problems (1) Gestational hypertension without significant proteinuria Onset Date: ~03/15/21 Current Visit: Yes Status: Acute Qualifiers: Trimester: third trimester Qualified Code(s): O13.3 - Gestational [-induced] hypertension without significant proteinuria, third trimester Plan to address problem: Anesthesia called for epidural BP 170-160/90 Dr Singh made aware Will re asses after epidural Subjective - Subjective Date of service: 03/17/21 (Pt crying out request to be examined) Principal diagnosis: IUP @ 36.5 weeks gestation, IOL for worsening CHTN in Patient reports: movement normal, contractions Objective - Vital Signs Vital Signs: Vital Signs - 12hr 03/17/21 03/17/21 03/17/21 05:03 05:08 05:13 Temperature Pulse Rate 93 H 80 75 Respiratory Rate Blood Pressure O2 Sat by Pulse 97 97 97 Oximetry O2 Sat by Pulse Oximetry [ Bilateral Throughout] 03/17/21 03/17/21 03/17/21 05:17 05:18 05:23 Temperature Pulse Rate 76 77 77 Respiratory Rate Blood Pressure 134/72 O2 Sat by Pulse 98 97 Oximetry O2 Sat by Pulse Oximetry [ Bilateral Throughout] 03/17/21 03/17/21 03/17/21 05:28 05:33 05:38 Temperature Pulse Rate 82 75 76 Respiratory Rate Blood Pressure O2 Sat by Pulse 96 96 96 Oximetry O2 Sat by Pulse Oximetry [ Bilateral Throughout] 03/17/21 03/17/21 03/17/21 05:43 05:46 05:48 Temperature Pulse Rate 74 76 72 Respiratory Rate Blood Pressure 147/63 O2 Sat by Pulse 96 97 Oximetry O2 Sat by Pulse Oximetry [ Bilateral Throughout] 03/17/21 03/17/21 03/17/21 05:53 05:58 06:03 Temperature Pulse Rate 73 74 72 Respiratory Rate Blood Pressure O2 Sat by Pulse 97 97 99 Oximetry O2 Sat by Pulse Oximetry [ Bilateral Throughout] 03/17/21 03/17/21 03/17/21 06:08 06:16 06:21 Temperature Pulse Rate 65 77 80 Respiratory Rate Blood Pressure O2 Sat by Pulse 98 100 99 Oximetry O2 Sat by Pulse Oximetry [ Bilateral Throughout] 03/17/21 03/17/21 03/17/21 06:26 06:30 06:31 Temperature 98.3 F Pulse Rate 71 72 Respiratory Rate Blood Pressure O2 Sat by Pulse 98 98 Oximetry O2 Sat by Pulse Oximetry [ Bilateral Throughout] 03/17/21 03/17/21 03/17/21 06:34 06:36 06:41 Temperature Pulse Rate 67 68 67 Respiratory Rate Blood Pressure 129/69 O2 Sat by Pulse 97 96 Oximetry O2 Sat by Pulse Oximetry [ Bilateral Throughout] 03/17/21 03/17/21 03/17/21 06:46 06:51 06:56 Temperature Pulse Rate 60 65 66 Respiratory Rate Blood Pressure 138/75 O2 Sat by Pulse 96 97 97 Oximetry O2 Sat by Pulse Oximetry [ Bilateral Throughout] 03/17/21 03/17/21 03/17/21 07:01 07:06 07:11 Temperature Pulse Rate 66 69 68 Respiratory Rate Blood Pressure O2 Sat by Pulse 97 98 97 Oximetry O2 Sat by Pulse Oximetry [ Bilateral Throughout] 03/17/21 03/17/21 03/17/21 07:13 07:16 07:18 Temperature 98.7 F Pulse Rate 61 55 L Respiratory 18 Rate Blood Pressure 159/83 O2 Sat by Pulse 99 Oximetry O2 Sat by Pulse 98 Oximetry [ Bilateral Throughout] 03/17/21 03/17/21 03/17/21 07:21 07:26 07:31 Temperature Pulse Rate 66 60 58 L Respiratory Rate Blood Pressure O2 Sat by Pulse 99 100 100 Oximetry O2 Sat by Pulse Oximetry [ Bilateral Throughout] 03/17/21 03/17/21 03/17/21 07:36 07:41 07:46 Temperature Pulse Rate 55 L 67 57 L Respiratory Rate Blood Pressure O2 Sat by Pulse 98 96 99 Oximetry O2 Sat by Pulse Oximetry [ Bilateral Throughout] 03/17/21 03/17/21 03/17/21 07:47 07:51 07:56 Temperature Pulse Rate 54 L 56 L 55 L Respiratory Rate Blood Pressure 155/86 O2 Sat by Pulse 99 98 Oximetry O2 Sat by Pulse Oximetry [ Bilateral Throughout] 03/17/21 03/17/21 03/17/21 08:01 08:06 08:11 Temperature Pulse Rate 59 L 59 L 56 L Respiratory Rate Blood Pressure O2 Sat by Pulse 100 100 97 Oximetry O2 Sat by Pulse Oximetry [ Bilateral Throughout] 03/17/21 03/17/21 03/17/21 08:13 08:18 08:19 Temperature Pulse Rate 65 61 77 Respiratory Rate Blood Pressure O2 Sat by Pulse 80 L 69 L 90 Oximetry O2 Sat by Pulse Oximetry [ Bilateral Throughout] 03/17/21 03/17/21 03/17/21 08:24 08:29 08:34 Temperature Pulse Rate 60 59 L 63 Respiratory Rate Blood Pressure O2 Sat by Pulse 97 98 99 Oximetry O2 Sat by Pulse Oximetry [ Bilateral Throughout] 03/17/21 03/17/21 03/17/21 08:39 08:44 08:46 Temperature Pulse Rate 57 L 57 L 55 L Respiratory Rate Blood Pressure 140/83 O2 Sat by Pulse 99 99 Oximetry O2 Sat by Pulse Oximetry [ Bilateral Throughout] 03/17/21 03/17/21 03/17/21 08:49 08:52 08:54 Temperature Pulse Rate 62 60 57 L Respiratory Rate Blood Pressure O2 Sat by Pulse 99 93 100 Oximetry O2 Sat by Pulse Oximetry [ Bilateral Throughout] 03/17/21 03/17/21 03/17/21 08:59 09:00 09:04 Temperature Pulse Rate 63 180 H Respiratory Rate Blood Pressure O2 Sat by Pulse 98 83 L 66 L Oximetry O2 Sat by Pulse Oximetry [ Bilateral Throughout] 03/17/21 03/17/21 03/17/21 09:06 09:11 09:48 Temperature Pulse Rate 71 67 Respiratory Rate Blood Pressure O2 Sat by Pulse 68 L 79 L 98 Oximetry O2 Sat by Pulse Oximetry [ Bilateral Throughout] 03/17/21 03/17/21 03/17/21 09:50 09:53 09:58 Temperature Pulse Rate 59 L 63 65 Respiratory Rate Blood Pressure 144/84 O2 Sat by Pulse 99 99 Oximetry O2 Sat by Pulse Oximetry [ Bilateral Throughout] 03/17/21 03/17/21 03/17/21 10:03 10:08 10:13 Temperature Pulse Rate 75 77 57 L Respiratory Rate Blood Pressure O2 Sat by Pulse 98 98 99 Oximetry O2 Sat by Pulse Oximetry [ Bilateral Throughout] 03/17/21 03/17/21 03/17/21 10:18 10:19 10:23 Temperature Pulse Rate 59 L 65 80 Respiratory Rate Blood Pressure 159/93 O2 Sat by Pulse 99 98 Oximetry O2 Sat by Pulse Oximetry [ Bilateral Throughout] 03/17/21 03/17/21 03/17/21 10:28 10:33 10:38 Temperature Pulse Rate 70 81 71 Respiratory Rate Blood Pressure O2 Sat by Pulse 100 99 98 Oximetry O2 Sat by Pulse Oximetry [ Bilateral Throughout] 03/17/21 03/17/21 03/17/21 10:43 10:48 10:53 Temperature Pulse Rate 61 61 76 Respiratory Rate Blood Pressure O2 Sat by Pulse 99 100 98 Oximetry O2 Sat by Pulse Oximetry [ Bilateral Throughout] 03/17/21 03/17/21 03/17/21 10:58 11:03 11:08 Temperature Pulse Rate 66 67 60 Respiratory Rate Blood Pressure O2 Sat by Pulse 99 97 98 Oximetry O2 Sat by Pulse Oximetry [ Bilateral Throughout] 03/17/21 03/17/21 03/17/21 11:13 11:18 11:23 Temperature Pulse Rate 67 61 66 Respiratory Rate Blood Pressure 145/83 O2 Sat by Pulse 98 98 98 Oximetry O2 Sat by Pulse Oximetry [ Bilateral Throughout] 03/17/21 03/17/21 03/17/21 11:28 11:33 11:38 Temperature Pulse Rate 75 66 67 Respiratory Rate Blood Pressure O2 Sat by Pulse 97 98 98 Oximetry O2 Sat by Pulse Oximetry [ Bilateral Throughout] 03/17/21 03/17/21 03/17/21 11:43 11:48 11:53 Temperature Pulse Rate 74 61 67 Respiratory Rate Blood Pressure O2 Sat by Pulse 98 99 99 Oximetry O2 Sat by Pulse Oximetry [ Bilateral Throughout] 03/17/21 03/17/21 03/17/21 11:58 12:03 12:08 Temperature Pulse Rate 61 61 60 Respiratory Rate Blood Pressure O2 Sat by Pulse 98 99 99 Oximetry O2 Sat by Pulse Oximetry [ Bilateral Throughout] 03/17/21 03/17/21 03/17/21 12:13 12:18 12:23 Temperature Pulse Rate 65 61 68 Respiratory Rate Blood Pressure 139/82 O2 Sat by Pulse 98 99 99 Oximetry O2 Sat by Pulse Oximetry [ Bilateral Throughout] 03/17/21 03/17/21 03/17/21 12:28 12:33 12:38 Temperature Pulse Rate 65 68 66 Respiratory Rate Blood Pressure O2 Sat by Pulse 98 99 98 Oximetry O2 Sat by Pulse Oximetry [ Bilateral Throughout] 03/17/21 03/17/21 03/17/21 12:43 12:48 12:53 Temperature Pulse Rate 63 62 62 Respiratory Rate Blood Pressure O2 Sat by Pulse 98 99 99 Oximetry O2 Sat by Pulse Oximetry [ Bilateral Throughout] 03/17/21 03/17/21 03/17/21 12:58 13:03 13:08 Temperature Pulse Rate 65 68 58 L Respiratory Rate Blood Pressure O2 Sat by Pulse 99 98 99 Oximetry O2 Sat by Pulse Oximetry [ Bilateral Throughout] 03/17/21 03/17/21 03/17/21 13:13 13:18 13:20 Temperature Pulse Rate 62 58 L 57 L Respiratory Rate Blood Pressure 158/83 O2 Sat by Pulse 99 99 Oximetry O2 Sat by Pulse Oximetry [ Bilateral Throughout] 03/17/21 03/17/21 03/17/21 13:23 13:28 13:33 Temperature Pulse Rate 59 L 61 57 L Respiratory Rate Blood Pressure O2 Sat by Pulse 99 100 98 Oximetry O2 Sat by Pulse Oximetry [ Bilateral Throughout] 03/17/21 03/17/21 03/17/21 13:38 13:43 13:48 Temperature Pulse Rate 68 62 62 Respiratory Rate Blood Pressure O2 Sat by Pulse 98 99 99 Oximetry O2 Sat by Pulse Oximetry [ Bilateral Throughout] 03/17/21 03/17/21 03/17/21 13:53 13:58 14:03 Temperature Pulse Rate 65 62 61 Respiratory 18 Rate Blood Pressure O2 Sat by Pulse 100 97 99 Oximetry O2 Sat by Pulse Oximetry [ Bilateral Throughout] 03/17/21 03/17/21 03/17/21 14:08 14:13 14:18 Temperature Pulse Rate 55 L 59 L 56 L Respiratory Rate Blood Pressure O2 Sat by Pulse 97 98 98 Oximetry O2 Sat by Pulse Oximetry [ Bilateral Throughout] 03/17/21 03/17/21 03/17/21 14:19 14:23 14:28 Temperature Pulse Rate 52 L 56 L 59 L Respiratory Rate Blood Pressure 181/94 O2 Sat by Pulse 97 98 Oximetry O2 Sat by Pulse Oximetry [ Bilateral Throughout] 03/17/21 03/17/21 03/17/21 14:33 14:38 14:43 Temperature Pulse Rate 55 L 56 L 56 L Respiratory Rate Blood Pressure O2 Sat by Pulse 98 99 99 Oximetry O2 Sat by Pulse Oximetry [ Bilateral Throughout] 03/17/21 03/17/21 03/17/21 14:48 15:07 15:08 Temperature Pulse Rate 56 L 54 L 52 L Respiratory Rate Blood Pressure 178/94 O2 Sat by Pulse 99 97 Oximetry O2 Sat by Pulse Oximetry [ Bilateral Throughout] 03/17/21 03/17/21 03/17/21 15:13 15:18 15:19 Temperature Pulse Rate 58 L 65 72 Respiratory Rate Blood Pressure 175/95 O2 Sat by Pulse 98 98 Oximetry O2 Sat by Pulse Oximetry [ Bilateral Throughout] 03/17/21 03/17/21 03/17/21 15:23 15:28 15:33 Temperature Pulse Rate 66 67 101 H Respiratory Rate Blood Pressure O2 Sat by Pulse 100 99 97 Oximetry O2 Sat by Pulse Oximetry [ Bilateral Throughout] 03/17/21 03/17/21 03/17/21 15:38 15:43 15:48 Temperature Pulse Rate 81 64 73 Respiratory Rate Blood Pressure O2 Sat by Pulse 99 100 100 Oximetry O2 Sat by Pulse Oximetry [ Bilateral Throughout] 03/17/21 03/17/21 03/17/21 15:53 15:58 16:03 Temperature Pulse Rate 81 66 88 Respiratory Rate Blood Pressure O2 Sat by Pulse 98 98 99 Oximetry O2 Sat by Pulse Oximetry [ Bilateral Throughout] 03/17/21 03/17/21 03/17/21 16:08 16:17 16:22 Temperature Pulse Rate 86 73 89 Respiratory Rate Blood Pressure O2 Sat by Pulse 96 97 99 Oximetry O2 Sat by Pulse Oximetry [ Bilateral Throughout] 03/17/21 03/17/21 03/17/21 16:27 16:32 16:37 Temperature Pulse Rate 89 88 96 H Respiratory Rate Blood Pressure O2 Sat by Pulse 100 100 99 Oximetry O2 Sat by Pulse Oximetry [ Bilateral Throughout] 03/17/21 03/17/21 03/17/21 16:42 16:47 16:52 Temperature Pulse Rate 95 H 88 97 H Respiratory Rate Blood Pressure O2 Sat by Pulse 97 99 97 Oximetry O2 Sat by Pulse Oximetry [ Bilateral Throughout] 03/17/21 03/17/21 16:55 16:57 Temperature Pulse Rate 68 95 H Respiratory Rate Blood Pressure O2 Sat by Pulse 94 95 Oximetry O2 Sat by Pulse Oximetry [ Bilateral Throughout] - Exam Breasts: deferred Cardiovascular: Regular rate Lungs: Normal air movement Abdomen: Present: normal appearance, soft. Absent: distention, tenderness Uterus: Present: normal FHR: auscultation normal, category 1 Uterine Contraction Monitor Mode: Internal Cervical Dilatation: 5 (ISE/IUPC placed) Cervical Effacement Percentage: 100 (clear fluid minimal amt) station: -1 Uterine Contraction Pattern: Regular Uterine Tone Measurement Phase: Resting Uterine Contraction Intensity: Moderate Extremities: normal Deep Tendon Reflex Grade: Normal +2 - Labs Labs: Abnormal Labs 03/13/21 03/13/21 10:07 13:56 Creatinine 0.5 L Ur Total Protein 24 Hr 216.00 H Urine Total Protein 18 H
--- NOTE | 2021-03-17 17:21 | Anesthesia Consultation ---
Anesthesia Consult and Med Hx Date of service: 03/17/21 - Airway Anesthetic Teeth Evaluation: Good ROM Head & Neck: Adequate Mental/Hyoid Distance: Adequate Mallampati Class: Class III Intubation Access Assessment: Possibly Difficult - Pulmonary Exam CTA: Yes - Cardiac Exam Cardiac Exam: RRR - Pre-Operative Health Status ASA Pre-Surgery Classification: ASA2 Proposed Anesthetic Plan: Epidural - Pulmonary Hx Smoking: No Hx Asthma: Yes Hx Sleep Apnea: No - Cardiovascular System Hx Hypertension: No Hx Heart Attack/AMI: No Hx Angina: No - Central Nervous System Hx Seizures: No Hx Psychiatric Problems: No - Gastrointestinal Hx Gastroesophageal Reflux Disease: No - Endocrine Hx Renal Disease: No Hx Liver Disease: No Hx Insulin Dependent Diabetes: No Hx Non-Insulin Dependent Diabetes: No Hx Hypothyroidism: No Hx Hyperthyroidism: No - Hematic Hx Anemia: No Hx Sickle Cell Disease: No - Other Systems Hx Alcohol Use: Yes Hx Obesity: Yes
--- NOTE | 2021-03-17 17:22 | Progress Note ---
Labor Epidural - Labor Epidural Start Time: 17:10 Stop Time: 17:25 Performed by:: CARLTON ALMEIDA Procedure: Patient is requesting epidural for labor and pain. H&P, labs were reviewed. Patient IDed, H&P reviewed, all questions and concerns were answered, and consent was signed. Timeout was performed at bedside. Patient in sitting position. Sterile prep and drape was performed. 3ml of 1% lidocaine skin wheal at L[3]- L [4]. 18-gauge [email or web address] epidural needle was advanced to loss of resistance with air technique 7cm. Negative CSF negative blood. Epidural catheter advanced to [12] centimeters. [negative] Aspiration [negative] test dose. Sterile dressing applied. Patient tolerated procedure.
[2021-03-17] MEDS ORDERED: MAGNESIUM SULFATE 4 GM/100 ML BAG IV ONE (17:25)
--- NOTE | 2021-03-17 17:35 | Event Note ---
Date: 03/17/21 (BP cont to trend up) BP 215/95 hydralazine 10mg IVP given MGSO4 bolus started Dr Singh aware. Pt made aware of my concerns with BP and need for intervention Pt voiced understanding and agrees to POC.
[2021-03-17] MEDS ORDERED: hydrALAZINE 20 MG/1 ML INJ IV ONE (18:00)
[2021-03-17] MEDS ORDERED: FAMOTIDINE 20 MG/2 ML INJ IV ONE ×2 (19:25→19:26)
[2021-03-17] MEDS ORDERED: METOCLOPRAMIDE 10 MG/2 ML INJ IV ONE (19:25)
[2021-03-17] MEDS ORDERED: BICITRA ORAL LIQD 30ML PO ONE (19:25)
[2021-03-17] MEDS ORDERED: BICITRA ORAL LIQD 30ML ONE (19:26)
[2021-03-17] MEDS ORDERED: METOCLOPRAMIDE 10 MG/2 ML INJ ONE (19:26)
[2021-03-17] MEDS ORDERED: LACTATED RINGERS 1,000 ML IV SCH (19:30)
--- NOTE | 2021-03-17 19:37 | Event Note ---
Date: 03/17/21 (Dr Singh here) Arrest of descent Pt consented Risks: damage to surrounding organs, need for transfusion, c/s with future deliveries Pt voiced understanding. Agrees with POC
[2021-03-17] MEDS ORDERED: KETOROLAC 30 MG/1 ML INJ ONE (19:43)
[2021-03-17] MEDS ORDERED: ONDANSETRON 4 MG/2 ML INJ ONE (19:43)
[2021-03-17] MEDS ORDERED: LIDOCAINE 2%/EPINEPHRINE 1:200,000 VIAL (20 ML) INFILTRATI ONE (19:43)
[2021-03-17] MEDS ORDERED: ePHEDrine SULFATE 50 MG/1 ML INJ ONE (19:52)
[2021-03-17] MEDS ORDERED: MORPHINE PF 10MG/10 ML AMPULE ONE (19:59)
[2021-03-17] MEDS ORDERED: ceFAZolin/Water 2 GM/20 ML 2 GM/20 ML SYRINGE IV NR (20:00)
[2021-03-17] MEDS ORDERED: OXYTOCIN DRIP 30 UNITS/500 ML BAG IV SCH (20:00)
[2021-03-17] MEDS ORDERED: SODIUM CHLORIDE 0.9% IRR 1,500 ML BOTTLE IR ONE (20:03)
[2021-03-17] MEDS ORDERED: ceFAZolin/STERILE WATER 2 GM/20 ML SYRINGE IV ONE (20:03)
[2021-03-17] MEDS ORDERED: WATER FOR IRRIG STERILE 1,500 ML BOTTLE IR ONE (20:03)
[2021-03-17] MEDS ORDERED: PHENYLEPHRINE/NS 1,000 MCG/10 ML SYRINGE (OR USE) IV ONE (20:04)
[2021-03-17] MEDS ORDERED: LACTATED RINGERS 1,000 ML ONE (20:08)
[2021-03-17] MEDS ORDERED: NALOXONE 0.4 MG/1 ML INJ IV PRN (20:12)
[2021-03-17] MEDS ORDERED: PROMETHAZINE 25 MG TAB PO PRN (20:12)
[2021-03-17] MEDS ORDERED: PROMETHAZINE 25 MG RECT SUPP PR PRN (20:12)
[2021-03-17] MEDS ORDERED: AZITHROMYCIN/NS 500 MG/250 ML 500 MG/250 ML BAG IV ONE (20:15)
[2021-03-17] MEDS ORDERED: OXYTOCIN 10 UNIT/1 ML INJ ONE ×2 (20:19→20:52)
[2021-03-17] MEDS ORDERED: WITCH HAZEL/ GLYCERIN PAD TP PRN (21:17)
[2021-03-17] MEDS ORDERED: MORPHINE 4 MG/1 ML INJ IV PRN (21:17)
[2021-03-17] MEDS ORDERED: KETOROLAC 30 MG/1 ML INJ IV PRN (21:17)
--- NOTE | 2021-03-17 21:32 | Post Operative Note ---
Pre-op diagnosis: arrest of descent, gestional hypertension, IUP @ 36w5d Post-op diagnosis: same Findings: Viable 2740 g female APGARs 7/9. Uterus, fallopian tubes and ovaries normal in appearance. Procedure: Primary low transverse section Anesthesia: epidural Surgeon: HUONG HERRMANN Metalsmith Helper: CHASE DENNEY Estimated blood loss: other (841 ml) Pathology: list (Placenta) Specimen disposition: to lab Condition: stable Disposition: PACU
[2021-03-17] MEDS: MAGNESIUM SULFATE 40GM/1000ML 40 GM/1,000 ML BAG IV SCH (23:22)
--- NOTE | 2021-03-18 00:27 | Operative Report ---
Operative Report Operative Report: Preoperative diagnosis: IUP @ 36w5d, Arrest of descent, gestational hypertension Postoperative diagnosis: same, s/p PLTCS Procedure: Primary Low Transverse Section Surgeon: Vivian Singh MD Medical Practice Administrator: GIL Jenkins Anesthesia: Epidural Complications: none QBL: 841ml IV Fluids: 1500 ml UOP: 75 ml Indications: Arrest of descent Findings: 2740 g female infant in occiput posterior position cephalic presentation with Apgars 7 & 9 Amniotic fluid clear; Terminal meconium noted Fallopian tubes normal in appearance Ovaries normal in appearance Specimens: Placenta, cord blood Procedure: The patient was taken to the operating room where epidural anesthesia was found to be adequate. She was then prepared and draped in the usual sterile fashion in the dorsal supine position with a leftward tilt. Ancef 2 g and azithromycin 500 mg given. A Pfannenstiel skin incision was made with the scalpel and carried through to the underlying layer of fascia with the bovie. The fascia was incised in the midline and the incision extended laterally. The superior aspect of the fascial incision was then grasped with the Rich's clamps, elevated, and the underlying rectus muscles dissected off bluntly and with sharp dissection using bovie. Attention was then turned to the inferior aspect of this incision which, in a similar fashion, was grasped, tented up with the Rich clamps, and the rectus was dissected off bluntly and with sharp dissection. The rectus muscles were then in the midline, and the peritoneum identified, tented up and entered sharply with the Metzenbaum scissors. The peritoneal incision was then extended superiorly and inferiorly with good visualization of the bladder. The bladder blade was then inserted and the vesicouterine peritoneum identified, grasped with the pick ups, and entered sharply with the Metzenbaum scissors. This incision was then extended laterally and the bladder flap created digitally. The bladder blade was then reinserted and the lower uterine segment incised in a transverse fashion with the scalpel. The uterine incision was then extended laterally digitally. The bladder blade was then removed and the was delivered. Nuchal cord reduced. The nose and mouth were suctioned with the bulb suction and the cord clamped and cut. The infant was handed off to the waiting NICU staff.The placenta was then removed; the uterus exteriorized and cleared of all clots and debris. The uterine incision was repaired with 0 vicryl in a running locked fashion to obtain hemostasis. An imbrication layer was done given. Areas of oozing were noted and individual figure of eight sutures of 2-0 vicryl were placed Uterus returned to the abdomen. Bleeding at the lower uterine segment again noted. IM Pitocin, 10 ml given directly into the uterus. Uterus removed from the abdomen and an additional figure of eight suture was placed. Hemostasis noted and the uterus was returned to the abdomen. Incision was again inspected and noted to be hemostatic. Surgicel placed along the incision. The rectus muscle was reapprox imeted with a figure of eight suture with 2-0 Vicryl. The fascia was reapproximated with 0 vicryl in a running fashion. Subcutaneous layer reapproximated with 3-0 vicryl. The skin was closed with 4-0 vicryl subcuticular stitch and the incision dressed with a pressure dressing.The patient tolerated the procedure well. Sponge, lap, needle counts correct X 2. The patient was taken to the recovery room in a stable condition.
[2021-03-18] MEDS ORDERED: MEASLES, MUMPS & RUBELLA 12,500 UNIT/0.5 ML VACCINE SUB-Q ONE (06:00)
[2021-03-18] MEDS ORDERED: TETANUS,DIPH,PERTUSS(ACELL) VACCINE 0.5 ML SYRINGE IM ONE (06:00)
--- NOTE | 2021-03-18 06:19 | Progress Note ---
Assessment and Plan - Patient Problems (1) delivery delivered Onset Date: ~03/18/21 Current Visit: Yes Status: Acute Plan to address problem: Pt awake No c/o voiced "I'm hungry. When can I eat.?" +BS will order cardiac diet for breakfast.BP 130-139/80-70 Denies BURT, blurred vision, chest pain. Clear yellow urine draining into BSB. Output 300 since 0100. DTRs 2t brisk Pt stable s/p section; CHTN MGSO4 X 24 hours P: continue pathway; complete MGSO4; close monitor BP Subjective - Subjective Date of service: 03/18/21 (pt sleeping) Principal diagnosis: s/p section Arrest of descent Patient reports: voiding normally (clear yellow urine) : doing well Objective - Vital Signs Latest vital signs: Vital Signs Temp Pulse Resp BP Pulse Ox Pulse Ox Pulse Ox 03/18/21 05:59 101 H 94 03/18/21 05:58 102 H 94 03/18/21 05:54 95 H 95 03/18/21 05:49 97 H 96 03/18/21 05:44 93 H 96 03/18/21 05:39 98 H 96 03/18/21 05:34 103 H 96 03/18/21 05:30 91 H 136/75 03/18/21 05:29 96 H 96 03/18/21 05:24 98 H 96 03/18/21 05:22 96 H 94 03/18/21 05:19 107 H 96 03/18/21 05:14 97 H 98 03/18/21 05:09 100 H 96 03/18/21 05:04 95 H 97 03/18/21 04:59 91 H 97 03/18/21 04:54 98 H 95 03/18/21 04:49 94 H 96 03/18/21 04:44 93 H 95 03/18/21 04:39 93 H 95 03/18/21 04:34 85 96 03/18/21 04:30 88 134/81 03/18/21 04:29 90 97 03/18/21 04:24 94 H 96 03/18/21 04:19 88 97 03/18/21 04:14 90 97 03/18/21 04:09 89 96 03/18/21 04:04 90 97 03/18/21 03:59 95 H 97 03/18/21 03:54 98 H 97 03/18/21 03:49 110 H 96 03/18/21 03:44 94 H 97 03/18/21 03:42 98 H 94 03/18/21 03:39 98 H 97 03/18/21 03:34 101 H 96 03/18/21 03:30 103 H 136/80 03/18/21 03:29 102 H 96 03/18/21 03:24 106 H 97 03/18/21 03:19 105 H 96 03/18/21 03:14 109 H 98 03/18/21 03:09 110 H 94 03/18/21 03:05 106 H 93 03/18/21 03:04 97 H 95 03/18/21 03:03 98.7 F 18 03/18/21 02:59 94 H 96 03/18/21 02:54 93 H 95 03/18/21 02:49 95 H 96 03/18/21 02:44 91 H 96 03/18/21 02:39 92 H 96 03/18/21 02:34 94 H 96 03/18/21 02:30 90 131/72 03/18/21 02:29 92 H 96 03/18/21 02:28 94 H 94 03/18/21 02:24 94 H 95 03/18/21 02:19 93 H 96 03/18/21 02:14 95 H 96 03/18/21 02:09 98 H 98 03/18/21 02:05 100 H 94 03/18/21 02:04 98 H 95 03/18/21 01:59 95 H 95 03/18/21 01:54 101 H 94 03/18/21 01:52 99 H 94 03/18/21 01:49 97 H 95 03/18/21 01:47 96 H 94 03/18/21 01:44 96 H 95 03/18/21 01:42 98 H 94 03/18/21 01:39 98 H 95 03/18/21 01:35 94 H 94 03/18/21 01:34 95 H 95 03/18/21 01:30 95 H 133/72 03/18/21 01:29 99 H 97 03/18/21 01:24 98 H 96 03/18/21 01:19 99 H 94 03/18/21 01:17 97 H 94 03/18/21 01:14 98 H 94 03/18/21 01:09 98 H 93 03/18/21 01:07 96 H 94 03/18/21 01:04 98 H 94 03/18/21 01:02 98 H 94 03/18/21 00:59 93 H 95 03/18/21 00:55 96 H 94 03/18/21 00:54 93 H 95 03/18/21 00:50 94 H 94 03/18/21 00:49 91 H 95 03/18/21 00:44 101 H 96 03/18/21 00:39 91 H 98 03/18/21 00:34 104 H 97 03/18/21 00:29 103 H 95 03/18/21 00:24 100 H 96 03/18/21 00:22 104 H 94 03/18/21 00:19 105 H 96 03/18/21 00:15 105 H 94 03/18/21 00:14 106 H 96 03/18/21 00:09 106 H 96 03/18/21 00:04 111 H 96 03/18/21 00:00 98.7 F 15 03/17/21 23:59 99 H 97 03/17/21 23:54 105 H 96 03/17/21 23:49 100 H 96 03/17/21 23:44 97 H 96 03/17/21 23:39 107 H 97 03/17/21 23:34 107 H 95 03/17/21 23:29 107 H 95 03/17/21 23:24 102 H 139/78 96 03/17/21 23:19 96 H 96 03/17/21 23:14 97 H 98 03/17/21 22:45 98.7 F 96 H 16 151/84 98 03/17/21 22:44 99 03/17/21 22:30 99 H 15 140/63 98 03/17/21 22:15 104 H 20 118/73 98 03/17/21 22:00 103 H 15 144/57 98 03/17/21 21:55 89 12 130/55 98 03/17/21 21:50 91 H 11 L 126/48 98 03/17/21 21:45 97.7 F 90 10 L 128/87 98 03/17/21 19:22 76 100/55 100 03/17/21 19:17 76 99 18 19:14 65 86/39 18 19:12 71 100 03/17/21 19:07 72 99 18 19:06 78 101/50 18 19:05 60 83 L 03/17/21 19:02 81 100 03/17/21 18:57 70 100 1821 18:55 70 105/50 03/17/21 18:53 98 H 197/121 03/17/21 18:52 69 97 1821 18:47 65 100 03/17/21 18:45 83 84 03/17/21 18:42 69 100 03/17/21 18:37 68 115/55 100 03/17/21 18:32 67 100 03/17/21 18:27 65 99 03/17/21 18:22 73 100 03/17/21 18:21 72 116/58 03/17/21 18:17 67 100 03/17/21 18:12 70 100 03/17/21 18:07 74 100 03/17/21 18:05 69 129/61 03/17/21 18:02 86 100 03/17/21 18:01 68 136/63 03/17/21 17:57 71 100 03/17/21 17:56 87 143/76 03/17/21 17:53 67 170/73 18 17:52 69 100 03/17/21 17:51 72 170/73 18 17:49 63 170/74 03/17/21 17:47 63 178/73 100 03/17/21 17:45 59 L 177/77 18 17:43 66 178/77 03/17/21 17:42 67 100 03/17/21 17:41 62 177/69 18 17:39 58 L 186/82 18 17:37 64 176/78 99 03/17/21 17:35 64 183/72 1821 17:33 64 194/87 18 17:32 65 98 1821 17:31 62 194/77 1821 17:29 62 185/74 1821 17:27 64 188/85 99 03/17/21 17:25 78 197/87 03/17/21 17:23 60 199/88 03/17/21 17:22 60 100 03/17/21 17:21 94 H 215/95 03/17/21 17:19 96 H 191/91 03/17/21 17:17 90 182/84 99 03/17/21 17:15 87 169/79 03/17/21 17:13 93 H 175/81 03/17/21 17:12 92 H 95 03/17/21 17:11 86 168/81 03/17/21 17:09 90 160/77 03/17/21 17:07 91 H 98 03/17/21 17:04 88 93 03/17/21 17:02 94 H 100 03/17/21 16:57 95 H 95 03/17/21 16:55 68 94 03/17/21 16:52 97 H 97 03/17/21 16:47 88 99 03/17/21 16:42 95 H 97 03/17/21 16:37 96 H 99 03/17/21 16:32 88 100 03/17/21 16:27 89 100 03/17/21 16:22 89 99 03/17/21 16:17 73 97 03/17/21 16:08 86 96 03/17/21 16:03 88 99 03/17/21 16:00 98.6 F 18 03/17/21 15:58 66 98 03/17/21 15:53 81 98 03/17/21 15:48 73 100 03/17/21 15:43 64 100 03/17/21 15:38 81 99 03/17/21 15:33 101 H 97 03/17/21 15:28 67 99 03/17/21 15:23 66 100 03/17/21 15:19 72 175/95 03/17/21 15:18 65 98 03/17/21 15:13 58 L 98 03/17/21 15:08 52 L 97 03/17/21 15:07 54 L 178/94 03/17/21 14:48 56 L 99 03/17/21 14:43 56 L 99 03/17/21 14:38 56 L 99 03/17/21 14:33 55 L 98 03/17/21 14:28 59 L 98 03/17/21 14:23 56 L 97 09/18/21 14:19 52 L 181/94 18/21 14:18 56 L 98 /18/21 14:13 59 L 98 /18/21 14:08 55 L 97 18/21 14:03 61 99 /18/21 13:58 62 97 /18/21 13:53 65 18 100 /18/21 13:48 62 99 /18/21 13:43 62 99 18/21 13:38 68 98 18/21 13:33 57 L 98 18/21 13:28 61 100 18/21 13:23 59 L 99 18/21 13:20 57 L 158/83 18/21 13:18 58 L 99 18/21 13:13 62 99 18/21 13:08 58 L 99 18/21 13:03 68 98 18/21 12:58 65 99 /18/21 12:53 62 99 18/21 12:48 62 99 18/21 12:43 63 98 18/21 12:38 66 98 /18/21 12:33 68 99 /18/21 12:28 65 98 /18/21 12:23 68 99 /18/21 12:18 61 139/82 99 18/21 12:13 65 98 18/21 12:08 60 99 18/21 12:03 61 99 /18/21 12:00 98.6 F 18 18/21 11:58 61 98 /18/21 11:53 67 99 /18/21 11:48 61 99 /18/21 11:43 74 98 /18/21 11:38 67 98 /18/21 11:33 66 98 /18/21 11:28 75 97 /18/21 11:23 66 98 09/18/21 11:18 61 145/83 98 /18/21 11:13 67 98 09/18/21 11:08 60 98 09/18/21 11:03 67 97 /18/21 10:58 66 99 09/18/21 10:53 76 98 /18/21 10:48 61 100 /18/21 10:43 61 99 /18/21 10:38 71 98 09/18/21 10:33 81 99 03/17/21 10:28 70 100 03/17/21 10:23 80 98 03/17/21 10:19 65 159/93 03/17/21 10:18 59 L 99 03/17/21 10:13 57 L 99 03/17/21 10:08 77 98 03/17/21 10:03 75 98 03/17/21 09:58 65 99 03/17/21 09:53 63 99 03/17/21 09:50 59 L 144/84 03/17/21 09:48 67 98 03/17/21 09:11 71 79 L 03/17/21 09:06 68 L 03/17/21 09:04 180 H 66 L 03/17/21 09:00 83 L 03/17/21 08:59 63 98 03/17/21 08:54 57 L 100 03/17/21 08:52 60 93 03/17/21 08:49 62 99 03/17/21 08:46 55 L 140/83 03/17/21 08:44 57 L 99 03/17/21 08:39 57 L 99 03/17/21 08:34 63 99 03/17/21 08:29 59 L 98 03/17/21 08:24 60 97 03/17/21 08:19 77 90 03/17/21 08:18 61 69 L 03/17/21 08:13 65 80 L 03/17/21 08:11 56 L 97 03/17/21 08:06 59 L 100 03/17/21 08:01 59 L 100 03/17/21 07:56 55 L 98 03/17/21 07:51 56 L 99 03/17/21 07:47 54 L 155/86 03/17/21 07:46 57 L 99 03/17/21 07:41 67 96 03/17/21 07:36 55 L 98 03/17/21 07:31 58 L 100 03/17/21 07:26 60 100 03/17/21 07:21 66 99 03/17/21 07:18 55 L 159/83 03/17/21 07:16 61 99 03/17/21 07:13 98.7 F 18 98 03/17/21 07:11 68 97 03/17/21 07:06 69 98 03/17/21 07:01 66 97 03/17/21 06:56 66 97 03/17/21 06:51 65 97 03/17/21 06:46 60 138/75 96 03/17/21 06:41 67 96 03/17/21 06:36 68 97 03/17/21 06:34 67 129/69 03/17/21 06:31 72 98 03/17/21 06:30 98.3 F 03/17/21 06:26 71 98 03/17/21 06:21 80 99 03/17/21 06:16 77 100 03/17/21 06:08 65 98 Intake and Output 03/17/21 03/17/21 03/18/21 14:59 22:59 06:59 Intake Total 1016 2511.9 672.917 Output Total 600 300 Balance 1016 1911.9 372.917 Intake: IV 1016 2511.9 672.917 Lactated Ringers 1,000 ml 1000 600 672.917 @ 125 mls/hr IV DIRECT RENAE Rx#:[id number] PITOCin/NS 30 UNIT/500ML 16 111.9 30 units In 500 ml @ 4 mls/hr IV Q30M RENAE Rx#: [id number] Output: Urine 600 300 Indwelling Catheter 100 200 Uretheral ([place]) 325 Void 100 Other: Total, Output Amount 100 100 - Exam Breasts: Present: normal Cardiovascular: Present: Regular rate Lungs: Present: Normal air movement Abdomen: Present: normal appearance, soft Extremities: Present: normal Deep Tendon Reflex Grade: Normal +2 Incision: Present: normal, dry, intact
[2021-03-18] MEDS: LACTATED RINGERS 1,000 ML IV SCH (06:38)
[2021-03-18] MEDS: PRENATAL VIT27-FE FUMARATE-FOLIC ACID VIT TAB PO SCH (09:19)
[2021-03-18] MEDS: valACYclovir 500 MG TAB PO SCH ×2 (09:20→21:00)
[2021-03-18] MEDS: oxyCODONE /ACETAMINOPHEN 5-325MG TAB PO PRN ×2 (09:54→17:08)
--- NOTE | 2021-03-18 12:02 | Post Anesthesia Evaluation ---
- Post Anesthesia Evaluation Patient Participated: Yes Airway Patent: Yes Stable Respiratory Function: Yes Nausea/Vomiting: No Temp > 96.8F: Yes Pain Manageable: Yes Adequeate Hydration: Yes Anesthesia Complications: No Block Receding Appropriately: Yes Patient on Ventilator: No
[2021-03-18 13:22] LABS: Hemoglobin 9.5 gm/dl (10.1-14.3)
[2021-03-18] MEDS: MAGNESIUM SULFATE 40GM/1000ML 40 GM/1,000 ML BAG IV SCH (18:32)
[2021-03-18] MEDS: IBUPROFEN 800 MG TAB PO PRN (19:54)
[2021-03-19] MEDS: IBUPROFEN 800 MG TAB PO PRN ×3 (01:48→19:35)
--- NOTE | 2021-03-19 07:59 | Progress Note ---
Assessment and Plan A: 25 y.o. s/p primary . S/p magnesium infusion. Doing well . P: Continue with care. Encourage early ambulation. Advance diet as tolerated. Continue to monitor for s/sx of pre eclampsia. Anticipate discharge home on 03/20. Subjective - Subjective Date of service: 03/19/21 Principal diagnosis: s/p primary POD#2, s/p mag infusion Patient reports: appetite normal, voiding normally, pain well controlled, flatus, ambulating normally [place]: doing well Objective - Vital Signs Latest vital signs: Vital Signs Temp Pulse Resp BP Pulse Ox Pulse Ox 03/19/21 03:38 98.2 F 63 20 121/69 100 03/19/21 02:48 18 03/19/21 01:48 18 03/19/21 00:44 98.1 F 67 18 114/62 98 03/19/21 00:30 100 03/19/21 00:00 14 100 03/18/21 23:45 65 97 03/18/21 23:40 69 99 03/18/21 23:35 68 96 03/18/21 23:34 69 127/72 03/18/21 23:30 68 126/69 97 03/18/21 23:25 81 97 03/18/21 23:20 78 96 03/18/21 23:19 75 93 03/18/21 23:15 84 97 03/18/21 23:10 75 97 03/18/21 23:05 78 97 03/18/21 23:00 79 12 97 03/18/21 22:55 79 97 03/18/21 22:50 82 97 03/18/21 22:45 85 95 03/18/21 22:40 84 96 03/18/21 22:35 80 97 03/18/21 22:30 77 127/65 97 03/18/21 22:25 82 97 03/18/21 22:20 78 97 03/18/21 22:15 78 97 03/18/21 22:10 81 97 03/18/21 22:06 69 94 03/18/21 22:05 70 97 03/18/21 22:00 72 97 03/18/21 21:55 78 96 03/18/21 21:50 78 96 03/18/21 21:45 74 96 09/19/21 21:40 72 97 09/19/21 21:35 72 98 09/19/21 21:30 72 136/79 98 /19/21 21:25 75 99 /19/21 21:20 73 98 /19/21 21:15 78 98 /19/21 21:10 77 98 /19/21 21:05 73 97 /19/21 21:00 81 12 99 19/21 20:59 80 121/69 19/21 20:55 77 97 /19/21 20:50 74 99 /19/21 20:45 76 98 /19/21 20:40 76 96 /19/21 20:35 77 97 /19/21 20:30 74 138/81 99 /19/21 20:25 78 98 19/21 20:20 77 96 19/21 20:15 77 99 19/21 20:10 78 98 /19/21 20:05 85 99 19/21 20:00 82 98 19/21 19:55 92 H 97 19/21 19:50 83 98 19/21 19:45 84 98 19/21 19:40 85 98 /19/21 19:35 85 98 19/21 19:30 80 126/63 99 19/21 19:25 81 99 19/21 19:19 82 98 19/21 19:18 83 94 19/21 19:15 87 97 19/21 19:10 92 H 100 19/21 19:05 92 H 98 19/21 19:00 12 99 19/21 18:59 97 H 99 19/21 18:58 88 149/93 19/21 18:55 99 H 97 19/21 18:50 91 H 98 19/21 18:45 87 98 19/21 18:40 98 H 97 19/21 18:35 91 H 97 19/21 18:30 87 138/84 19/21 18:29 89 98 /19/21 18:25 86 98 19/21 18:20 84 97 19/21 18:15 85 97 19/21 18:10 95 H 98 09/19/21 18:04 84 98 03/18/21 18:00 99.2 F 18 98 03/18/21 17:59 86 97 21 17:54 89 97 21 17:50 98 H 95 21 17:46 92 H 94 21 17:44 85 99 21 17:40 91 H 98 21 17:34 93 H 98 21 17:30 84 116/67 96 03/18/21 17:25 86 97 03/18/21 17:20 94 H 98 03/18/21 17:15 94 H 98 03/18/21 17:10 89 99 03/18/21 17:09 88 136/75 03/18/21 17:08 18 03/18/21 17:05 88 98 03/18/21 16:59 90 99 03/18/21 16:54 85 98 03/18/21 16:49 96 H 97 03/18/21 16:44 89 99 03/18/21 16:39 91 H 97 03/18/21 16:34 89 98 03/18/21 16:29 81 98 03/18/21 16:25 87 97 03/18/21 16:20 88 97 03/18/21 16:14 90 97 03/18/21 16:10 81 98 03/18/21 16:04 82 98 03/18/21 15:59 81 98 03/18/21 15:54 78 97 03/18/21 15:50 80 96 03/18/21 15:44 84 96 03/18/21 15:40 85 97 03/18/21 15:34 82 97 21 15:30 82 130/79 21 15:29 83 97 1921 15:24 83 97 21 15:21 76 94 21 15:19 78 98 03/18/21 15:14 88 98 03/18/21 15:11 88 93 21 15:09 74 98 03/18/21 15:04 79 98 1921 14:59 77 98 21 14:54 82 97 1921 14:53 76 94 03/18/21 14:50 82 97 03/18/21 14:47 84 94 03/18/21 14:44 90 96 03/18/21 14:41 80 94 03/18/21 14:39 80 95 03/18/21 14:34 78 97 03/18/21 14:30 72 129/71 03/18/21 14:29 90 95 03/18/21 14:24 79 96 03/18/21 14:19 79 96 03/18/21 14:14 82 96 03/18/21 14:09 78 95 03/18/21 14:04 83 95 03/18/21 14:00 98.8 F 18 03/18/21 13:59 80 95 03/18/21 13:57 80 94 03/18/21 13:54 81 95 03/18/21 13:50 79 95 03/18/21 13:44 80 96 03/18/21 13:39 79 96 03/18/21 13:34 81 96 03/18/21 13:30 73 121/64 03/18/21 13:29 78 96 03/18/21 13:24 79 97 03/18/21 13:19 82 97 03/18/21 13:14 79 97 03/18/21 13:09 85 98 03/18/21 13:04 83 97 03/18/21 12:59 79 97 03/18/21 12:57 84 94 03/18/21 12:54 80 96 03/18/21 12:49 81 97 03/18/21 12:48 79 94 03/18/21 12:44 85 97 03/18/21 12:39 86 96 03/18/21 12:34 78 95 03/18/21 12:30 77 134/72 03/18/21 12:29 79 96 03/18/21 12:24 78 96 03/18/21 12:19 86 96 03/18/21 12:14 91 H 97 03/18/21 12:09 90 97 03/18/21 12:06 88 93 03/18/21 12:04 85 96 03/18/21 11:59 84 97 03/18/21 11:54 78 98 03/18/21 11:49 86 96 03/18/21 11:44 79 96 03/18/21 11:39 80 96 03/18/21 11:34 87 96 09/19/21 11:30 80 124/61 19/21 11:29 85 97 19/21 11:24 87 96 19/21 11:19 90 96 21 11:16 88 94 03/18/21 11:14 84 96 03/18/21 11:09 84 97 03/18/21 11:04 86 96 21 11:03 91 H 94 21 10:59 87 99 21 10:58 84 92 21 10:54 87 96 03/18/21 10:49 90 96 03/18/21 10:48 88 94 03/18/21 10:44 87 97 21 10:39 88 96 21 10:34 93 H 95 03/18/21 10:33 87 94 21 10:30 86 129/79 03/18/21 10:29 91 H 96 03/18/21 10:24 89 97 03/18/21 10:19 86 97 03/18/21 10:14 83 98 03/18/21 10:09 90 99 03/18/21 10:04 94 H 98 03/18/21 10:00 98.7 F 18 03/18/21 09:59 87 97 03/18/21 09:54 89 97 03/18/21 09:49 90 97 03/18/21 09:44 90 96 03/18/21 09:39 88 98 03/18/21 09:34 87 98 03/18/21 09:30 82 143/85 21 09:29 79 98 03/18/21 09:24 89 98 21 09:20 88 141/87 21 09:19 90 97 21 09:14 85 95 03/18/21 09:09 89 97 03/18/21 09:04 87 96 21 08:59 89 95 03/18/21 08:56 87 94 03/18/21 08:54 88 95 03/18/21 08:49 84 95 03/18/21 08:44 85 96 19/21 08:39 86 96 21 08:34 85 96 1921 08:30 80 138/78 21 08:29 85 97 03/18/21 08:24 90 98 03/18/21 08:19 91 H 96 03/18/21 08:15 96 H 94 03/18/21 08:14 96 H 94 03/18/21 08:09 88 97 03/18/21 08:05 86 93 03/18/21 08:04 86 97 03/18/21 07:59 98 H 97 Intake and Output 03/18/21 03/19/21 03/19/21 22:59 06:59 14:59 Intake Total 958.333 120 Output Total 1300 2200 Balance -341.667 -2080 Intake: IV 958.333 MAGNESIUM SULFATE 40GM/ 958.333 1000ML 40 gm In 1,000 ml @ 2 GM/HR 50 mls/hr IV DIRECT RENAE Rx#:[id number] Oral 120 Output: Urine 1300 2200 Indwelling Catheter 1300 1400 Void 800 Other: Total, Intake Amount 120 Total, Output Amount 600 800 - Exam Narrative Exam: Pt denies BURT, blurred vision, spots before her eyes, chest pain, shortness of breath, and upper abdominal pain. We discussed should any of these symptoms occur to tell the RN immediately. Pt verbalized understanding. Blood pressure ranges have been 114-130's/60-70's. Breasts: Present: deferred Cardiovascular: Present: Regular rate Lungs: Present: Normal air movement Abdomen: Present: normal appearance, soft Vulva: both: normal Uterus: Present: normal, firm Extremities: Present: normal Incision: Present: normal, dry, intact, dressed - Labs Labs: Abnormal lab results 03/18/21 03/18/21 03/18/21 Range/Units 12:27 12:27 18:40 Hgb 9.5 L (10.1-14.3) gm/dl Hct 28.0 L D (30.3-42.9) % Magnesium 4.80 H 4.40 H (1.7-2.3) mg/dL
[2021-03-19] MEDS: LANOLIN/ZINC/DIMETHICONE (LANSINOH) 7 GM TP PRN (08:11)
[2021-03-19] MEDS: valACYclovir 500 MG TAB PO SCH ×2 (10:45→21:14)
[2021-03-19] MEDS: PRENATAL VIT27-FE FUMARATE-FOLIC ACID VIT TAB PO SCH (10:46)
[2021-03-19] MEDS: oxyCODONE /ACETAMINOPHEN 5-325MG TAB PO PRN (17:42)
[2021-03-20] MEDS: IBUPROFEN 800 MG TAB PO PRN ×2 (04:48→11:05)
--- NOTE | 2021-03-20 07:57 | Discharge Summary ---
Providers - Providers Date of Admission: 03/13/21 09:55 Date of discharge: 03/20/21 (pt excited to go home) Attending physician: HUONG HERRMANN MD 03/15/21 17:53 Consult to Physician [CONS] Routine Comment: Consulting Provider: AZUCENA QUACH Physician Instructions: Reason For Exam: GHTN @ 36w IOL Primary care physician: HUONG HERRMANN MD Hospitalization Reason for admission: IUP - , induction of labor, other (worsening BP readings) Delivery: Procedure: primary low transverse Episiotomy: none Laceration: none Incision: normal, dry, intact Other procedures: none complications: other (MGSO4 X 24 hours ) Discharge diagnosis: delivery baby: female Hospital course: Worsening BP readings kept for IOL Pt was complete Arrest of descent Taken to OR uncomplicated primary section Pt in good spirits this AM. Desires d/c if possible Consulted with Dr Bernal. BP 130/80-70 range Pt denies BURT, blurred vision, chest pain. FF below umb Lochia scant Incision D&I. No s/sx of anemia Doing well s/p c/s P: d/c today with instructions RTO Friday for a BP check [facility] 1015 All questions addressed Condition at discharge: Good Disposition: 01 HOME / SELF CARE / HOMELESS - Discharge Diagnoses (1) delivery delivered Status: Acute Comment: RTO Friday03-23-21 @ 1015 for incision and BP check Plan - Discharge Medications Prescriptions: Docusate Sodium [Colace] 100 mg PO BID #60 capsule Ferrous Sulfate [Feosol 325 MG tab] 325 mg PO QDAY #30 tablet labetaloL [Labetalol 100mg TAB] 100 mg PO BID #60 tablet Ibuprofen [Motrin 800 MG tab] 800 mg PO Q8HR #30 tablet oxyCODONE /ACETAMINOPHEN [Percocet 5/325] 1 tab PO Q6HR PRN #20 tablet PRN Reason: Pain - Provider Discharge Summary Activity: routine, no sex for 6 weeks, no heavy lifting 4 weeks, no strenuous exercise Diet: routine Instructions: routine Additional instructions: [] Smoking cessation referral if applicable(refer to patient education folder for contact #) [] Refer to [facility] Booklet Call your doctor immediately for: * Fever > 100.5 * Heavy vaginal bleeding ( >1 pad per hour) * Severe persistent headache * Shortness of breath * Reddened, hot, painful area to leg or breast * Drainage or odor from incision. * Keep incision clean and dry at all times and follow doctor's instructions regarding bathing/showering - Follow up plan Follow up: HUONG HERRMANN MD [Primary Care Provider] - 03/19/21 10:30 am (Congratulations! Please call [phone] with any headache, not relieved with Tylenol, blurred vision, chest pain. Take your blood pressure 2 times a day. Record the value. Call if the top number is greater than 160 or the bottom number is greater than 100. Also call if the top number is less than 100 or the bottom number is less than 50. Take medications as prescribed. REST. Limit salt, fried foods, drink a gallon of water a day. Call with any concerns. Keep appontment 03-23-21 at 10:15 in the [facility]. Bring your blood pressure readings with you to the visit.)
[2021-03-20] MEDS: valACYclovir 500 MG TAB PO SCH (11:05)
[2021-03-20] MEDS: PRENATAL VIT27-FE FUMARATE-FOLIC ACID VIT TAB PO SCH (11:05)
[2021-03-20] MEDS: LANOLIN/ZINC/DIMETHICONE (LANSINOH) 7 GM TP PRN (12:27)
[2021-03-20] MEDS: oxyCODONE /ACETAMINOPHEN 5-325MG TAB PO PRN (14:54)
[2021-03-20 16:11] VITALS: BP 138/87
== END 2021-03-20 17:31 | disposition home or self-care (01) | DRG 765 ==
LOC: APU 09:54 → TRG 09:54 → APU 09:55 → TRG 12:42 → LD 13:29 → OB 03-19 01:02
PROVIDERS: ADMIT Student in an Organized Health Care Education/Training Program; ATTEND Student in an Organized Health Care Education/Training Program
PROC: 10D00Z1 Extraction of Products of Conception, Low, Open Approach (ICD-10-PCS; principal; 2021-03-18)
PROC: 3E0P7VZ Introduction of Hormone into Female Reproductive, Via Natural or Artificial Opening (ICD-10-PCS; 2021-03-18)
PROC: 3E0234Z Introduction of Serum, Toxoid and Vaccine into Muscle, Percutaneous Approach (ICD-10-PCS; 2021-03-18)
DX: O13.4 Gestational [pregnancy-induced] hypertension without significant proteinuria, complicating childbirth (principal); O98.52 Other viral diseases complicating childbirth; O60.14X0 Preterm labor third trimester with preterm delivery third trimester, not applicable or unspecified; Z37.0 Single live birth; B00.9 Herpesviral infection, unspecified; Z3A.36 36 weeks gestation of pregnancy; O99.214 Obesity complicating childbirth; O62.1 Secondary uterine inertia; Z20.822 Contact with and (suspected) exposure to COVID-19; Z23 Encounter for immunization; O77.0 Labor and delivery complicated by meconium in amniotic fluid
CPT/HCPCS: 36415; 59200; 81001; 82565; 83615; 83735; 84156; 84450; 84460; 84550; 85014; 85018; 85027; 86592; 86850; 86900; 86901; 88307; G0378; J0360; J0456; J0690; J1885; J2210; J2274; J2370; J2405; J2590; J2765; J3010; J3475; J7120; U0003